=== PATIENT | male | born 1935 ===

== ENCOUNTER 2017-08-27 11:43 | Emergency (ER) | payer MEDICARE ==
[~2017-08-27] VITALS: Ht 185.4 cm; Wt 95.2 kg
[~2017-08-27 11:43] MED LIST: ALLO300 PO; AMIT25 PO; ASPI325; ASPI81CH PO; ATOR20 PO; ATOR40TA; Cialis20 MG; ENAL20 PO; FLONASE ALLERG9.9 ML NS; FURO40; FURO40 PO; GLYB5; JANUMET XR 50-1 EAC1; LISI5 PO; METF500 PO; METO25; ONGLYZA5 MG PO; PIOG30 PO; POTA10T; POTCHL10ER PO; TAMS.4ER PO
[2017-08-27 13:39] LABS: Source, Urine Catheter
[2017-08-27 13:43] LABS: Appearance, Urine Cloudy (Clear); Bilirubin, Urine Neg (Neg); Blood, Urine 5+ (Neg); Color, Urine Yellow (P-Yellow); Glucose Qualitative, Urine 2+ (Neg); Ketones, Urine Neg (Neg); Leukocyte Esterase, Urine 3+ (Neg); Nitrite, Urine Pos (Neg); Protein, Urine 3+ (Neg); Urobilinogen, Urine NORM (Normal)
[2017-08-27 13:49] LABS: Red Blood Cells, Urine TNTC /hpf (0-2); White Blood Cells, Urine 25-50 /hpf (0-5)
[2017-08-27 13:50] LABS: Bacteria Many /hpf; Squamous Epithelial Cells Not Seen /hpf (Few)
[2017-08-27] MEDS ORDERED: Cipro500 MG PO (14:06)
== END 2017-08-27 14:22 | disposition home or self-care (01) ==
LOC: ER 11:43
PROVIDERS: Emergency Medicine
DX: T83.511A Infection and inflammatory reaction due to indwelling urethral catheter, initial encounter (principal); E11.9 Type 2 diabetes mellitus without complications; Z79.899 Other long term (current) drug therapy; Z79.82 Long term (current) use of aspirin; Z79.84 Long term (current) use of oral hypoglycemic drugs
CPT/HCPCS: 51702; 81001; 87077; 87086; 87186; 99283

== ENCOUNTER 2017-08-28 11:56 | Emergency (ER) | payer MEDICARE ==
[~2017-08-28] VITALS: Ht 185.4 cm; Wt 95.2 kg
[~2017-08-28 11:56] MED LIST changes: +Cipro500 MG PO
[2017-08-28 13:19] LABS: BASOPHILS ABSOLUTE AUTO 0.03 K/mm3 (0.00-0.23); BASOPHILS PERCENT AUTO 1 % (0-2); EOSINOPHILS ABSOLUTE AUTO 0.04 K/mm3 (0.00-0.68); EOSINOPHILS PERCENT AUTO 1 % (0-6); Hematocrit 30.5 % (37.0-53.0); Hemoglobin 9.6 g/dL (13.5-17.5); IMMATURE GRAN ABSOLUTE AUTO 0.05 K/mm3 (0.00-0.10); IMMATURE GRAN PERCENT AUTO 1 % (0-1); LYMPHOCYTES ABSOLUTE AUTO 0.93 K/mm3 (0.84-5.20); LYMPHOCYTES PERCENT AUTO 16 % (21-46); MONOCYTES PERCENT AUTO 5 % (4-13); Mean Corpuscular HGB 29.7 pg (26.0-34.0); Mean Corpuscular HGB Conc 31.5 g/dL (31.5-36.5); Mean Corpuscular Volume 94 fL (80-100); Mean Platelet Volume 9.2 fL (9.1-12.4); NEUTROPHILS ABSOLUTE AUTO 4.41 K/mm3 (1.96-9.15); NEUTROPHILS PERCENT AUTO 77 % (41-73); Platelet Count 281 K/mm3 (150-400); RDW Coefficient Variation 15.2 % (11.7-14.2); RDW Standard Deviation 51.8 fL (35.1-46.3); Red Blood Cell Count 3.23 M/mm3 (4.30-5.90); White Blood Cell Count 5.76 K/mm3 (4.00-11.30)
[2017-08-28 13:24] LABS: Alanine Aminotransfer (ALT/SGP 19 U/L (12-78); Albumin, Blood 2.9 g/dL (3.4-5.0); Albumin/Globulin Ratio 0.8 (0.8-1.8); Alk Phos 106 U/L (50-136); Anion Gap 8 mmol/L (6-16); Aspartate Aminotrans (AST/SGOT 15 U/L (12-37); Bilirubin, Total 0.5 mg/dL (0.1-1.0); Blood Urea Nitrogen 11 mg/dL (8-24); Bun/Creatinine Ratio 11.3 (12.0-20.0); CO2, Blood 24 mmol/L (21-32); Calcium, Blood 8.9 mg/dL (8.5-10.1); Chloride, Blood 107 mmol/L (98-108); Creatinine, Blood 0.97 mg/dL (0.60-1.20); Globulin, Blood 3.7 g/dL (2.2-4.0); Glomerular Filtration Rate >60 (60-); Glucose, Blood 230 mg/dL (70-99); Potassium, Blood 4.9 mmol/L (3.5-5.5); Sodium, Blood 139 mmol/L (136-145); Total Protein, Blood 6.6 g/dL (6.4-8.2)
[2017-08-28 15:34] LABS: International Normalized Ratio 3.89; Prothrombin Time Results 42.2 Sec (9.7-11.5)
== END 2017-08-28 17:55 | disposition home or self-care (01) ==
LOC: ER 11:56
PROVIDERS: Emergency Medicine
DX: N39.0 Urinary tract infection, site not specified (principal); B96.5 Pseudomonas (aeruginosa) (mallei) (pseudomallei) as the cause of diseases classified elsewhere; R79.1 Abnormal coagulation profile; E11.9 Type 2 diabetes mellitus without complications; Z79.899 Other long term (current) drug therapy; Z79.84 Long term (current) use of oral hypoglycemic drugs; Z79.82 Long term (current) use of aspirin
CPT/HCPCS: 36415; 51700; 51798; 80053; 83605; 85025; 85610; 85730; 87040; 96365; 99283; J0744; J7030

== ENCOUNTER 2017-09-08 14:54 | Observation (INO) | payer MEDICARE ==
[~2017-09-08] VITALS: Ht 185.4 cm; Wt 89.5 kg
[2017-09-08] MEDS ORDERED: TORSE20 PO (15:29)
[2017-09-08] MEDS ORDERED: POTCHL10ER PO (15:29)
[2017-09-08] MEDS ORDERED: WARF2.5 PO (15:30)
[2017-09-08] MEDS ORDERED: CYAN100T2 (15:31)
[2017-09-08] MEDS ORDERED: MULTI VITAMIN1 EACH PO (15:32)
[2017-09-08] MEDS ORDERED: NIAC500 PO (15:32)
[2017-09-08] MEDS ORDERED: ALLEGRA ALLERGY60 MG PO (15:32)
[2017-09-08 15:49] LABS: BASOPHILS ABSOLUTE AUTO 0.04 K/mm3 (0.00-0.23); BASOPHILS PERCENT AUTO 1 % (0-2); EOSINOPHILS ABSOLUTE AUTO 0.09 K/mm3 (0.00-0.68); EOSINOPHILS PERCENT AUTO 2 % (0-6); Hematocrit 31.9 % (37.0-53.0); IMMATURE GRAN ABSOLUTE AUTO 0.02 K/mm3 (0.00-0.10); IMMATURE GRAN PERCENT AUTO 1 % (0-1); LYMPHOCYTES ABSOLUTE AUTO 0.97 K/mm3 (0.84-5.20); LYMPHOCYTES PERCENT AUTO 23 % (21-46); MONOCYTES PERCENT AUTO 10 % (4-13); Mean Corpuscular HGB 29.6 pg (26.0-34.0); Mean Corpuscular HGB Conc 31.3 g/dL (31.5-36.5); Mean Corpuscular Volume 94 fL (80-100); Mean Platelet Volume 9.4 fL (9.1-12.4); NEUTROPHILS ABSOLUTE AUTO 2.65 K/mm3 (1.96-9.15); NEUTROPHILS PERCENT AUTO 63 % (41-73); Platelet Count 209 K/mm3 (150-400); RDW Coefficient Variation 15.3 % (11.7-14.2); RDW Standard Deviation 53.2 fL (35.1-46.3); Red Blood Cell Count 3.38 M/mm3 (4.30-5.90); White Blood Cell Count 4.17 K/mm3 (4.00-11.30)
[2017-09-08 15:57] LABS: Albumin, Blood 3.2 g/dL (3.4-5.0); Albumin/Globulin Ratio 0.9 (0.8-1.8); Bilirubin, Total 0.5 mg/dL (0.1-1.0); Bun/Creatinine Ratio 18.1 (12.0-20.0); Calcium, Blood 9.1 mg/dL (8.5-10.1); Creatinine, Blood 1.38 mg/dL (0.60-1.20); Globulin, Blood 3.5 g/dL (2.2-4.0); Potassium, Blood 4.3 mmol/L (3.5-5.5); Total Protein, Blood 6.7 g/dL (6.4-8.2)
[2017-09-08 17:42] LABS: International Normalized Ratio 1.88; Prothrombin Time Results 19.9 Sec (9.7-11.5)
[2017-09-09 03:53] LABS: Hematocrit 28.7 % (37.0-53.0); Mean Corpuscular HGB 29.6 pg (26.0-34.0); Mean Corpuscular HGB Conc 31.4 g/dL (31.5-36.5); Mean Corpuscular Volume 94 fL (80-100); Mean Platelet Volume 8.6 fL (9.1-12.4); Platelet Count 176 K/mm3 (150-400); RDW Coefficient Variation 15.2 % (11.7-14.2); RDW Standard Deviation 52.5 fL (35.1-46.3); Red Blood Cell Count 3.04 M/mm3 (4.30-5.90); White Blood Cell Count 4.25 K/mm3 (4.00-11.30)
[2017-09-09 04:09] LABS: International Normalized Ratio 2.01; Prothrombin Time Results 21.4 Sec (9.7-11.5)
[2017-09-09 04:15] LABS: Albumin, Blood 2.8 g/dL (3.4-5.0); Albumin/Globulin Ratio 0.9 (0.8-1.8); Bilirubin, Total 0.6 mg/dL (0.1-1.0); Bun/Creatinine Ratio 16.9 (12.0-20.0); Calcium, Blood 8.8 mg/dL (8.5-10.1); Creatinine, Blood 1.24 mg/dL (0.60-1.20); Potassium, Blood 4.3 mmol/L (3.5-5.5); Total Protein, Blood 5.8 g/dL (6.4-8.2)
[2017-09-10 04:14] LABS: BASOPHILS ABSOLUTE AUTO 0.03 K/mm3 (0.00-0.23); BASOPHILS PERCENT AUTO 1 % (0-2); EOSINOPHILS ABSOLUTE AUTO 0.13 K/mm3 (0.00-0.68); EOSINOPHILS PERCENT AUTO 4 % (0-6); Hematocrit 29.1 % (37.0-53.0); Hemoglobin 9.3 g/dL (13.5-17.5); IMMATURE GRAN ABSOLUTE AUTO 0.02 K/mm3 (0.00-0.10); IMMATURE GRAN PERCENT AUTO 1 % (0-1); LYMPHOCYTES ABSOLUTE AUTO 0.53 K/mm3 (0.84-5.20); LYMPHOCYTES PERCENT AUTO 15 % (21-46); MONOCYTES ABSOLUTE AUTO 0.26 K/mm3 (0.16-1.47); MONOCYTES PERCENT AUTO 7 % (4-13); Mean Corpuscular Volume 94 fL (80-100); Mean Platelet Volume 9.6 fL (9.1-12.4); NEUTROPHILS ABSOLUTE AUTO 2.58 K/mm3 (1.96-9.15); NEUTROPHILS PERCENT AUTO 73 % (41-73); Platelet Count 188 K/mm3 (150-400); RDW Coefficient Variation 15.1 % (11.7-14.2); RDW Standard Deviation 52.1 fL (35.1-46.3); White Blood Cell Count 3.55 K/mm3 (4.00-11.30)
[2017-09-10 04:24] LABS: International Normalized Ratio 2.21; Prothrombin Time Results 23.6 Sec (9.7-11.5)
[2017-09-10 04:33] LABS: Anion Gap 8 mmol/L (6-16); Blood Urea Nitrogen 14 mg/dL (8-24); CO2, Blood 23 mmol/L (21-32); Calcium, Blood 8.5 mg/dL (8.5-10.1); Chloride, Blood 110 mmol/L (98-108); Creatinine, Blood 0.93 mg/dL (0.60-1.20); Glomerular Filtration Rate >60 (60-); Glucose, Blood 151 mg/dL (70-99); Potassium, Blood 4.3 mmol/L (3.5-5.5); Sodium, Blood 141 mmol/L (136-145)
[2017-09-10] MEDS ORDERED: CLOP75 PO (09:50)
== END 2017-09-10 12:20 | disposition home or self-care (01) ==
LOC: ER 14:54 → MEDS 14:55 → ICUE 14:55 → MEDS 18:18 → ER 18:18 → ICUE 21:20 → MEDS 21:39 → ICUE 09-09 11:01
PROVIDERS: Family Medicine; Hospitalist; Internal Medicine Interventional Cardiology; Physician Assistant
PROC: 047M3Z1 Dilation of Right Popliteal Artery using Drug-Coated Balloon, Percutaneous Approach (ICD-10-PCS; principal; 2017-09-08)
PROC: 047T341 Dilation of Right Peroneal Artery with Drug-eluting Intraluminal Device, using Drug-Coated Balloon, Percutaneous Approach (ICD-10-PCS; principal; 2017-09-08)
DX: I70.211 Atherosclerosis of native arteries of extremities with intermittent claudication, right leg (principal); I70.92 Chronic total occlusion of artery of the extremities; I87.1 Compression of vein; I48.0 Paroxysmal atrial fibrillation; E11.51 Type 2 diabetes mellitus with diabetic peripheral angiopathy without gangrene; E11.22 Type 2 diabetes mellitus with diabetic chronic kidney disease; I12.9 Hypertensive chronic kidney disease with stage 1 through stage 4 chronic kidney disease, or unspecified chronic kidney disease; N18.3 Chronic kidney disease, stage 3 (moderate); E78.5 Hyperlipidemia, unspecified; N40.0 Benign prostatic hyperplasia without lower urinary tract symptoms; D63.8 Anemia in other chronic diseases classified elsewhere; I25.10 Atherosclerotic heart disease of native coronary artery without angina pectoris; I25.2 Old myocardial infarction; M1A.30X0 Chronic gout due to renal impairment, unspecified site, without tophus (tophi); J30.9 Allergic rhinitis, unspecified; Z95.1 Presence of aortocoronary bypass graft; Z87.440 Personal history of urinary (tract) infections; Z79.899 Other long term (current) drug therapy; Z79.82 Long term (current) use of aspirin; Z79.84 Long term (current) use of oral hypoglycemic drugs; Z79.01 Long term (current) use of anticoagulants; Z98.49 Cataract extraction status, unspecified eye
CPT/HCPCS: 36415; 37224; 37230; 71046; 73630; 75625; 75710; 75774; 76937; 80048; 80053; 82947; 83036; 85014; 85018; 85025; 85027; 85347; 85610; 85730; 93308; 93321; 93926; 96361; 96365; 96366; 99152; 99153; 99285; C1725; C1769; C1874; C1887; C1894; C2623; G0378; J1644; J2250; J3010; J7030; J7040; Q9967

== ENCOUNTER → 2018-01-04 | Outpatient (CLI) | payer MEDICARE ==
[~2018-01-04] MED LIST changes: +ALLEGRA ALLERGY60 MG PO; +CLOP75 PO; +CYAN100T2; +MULTI VITAMIN1 EACH PO; +NIAC500 PO; +TORSE20 PO; +WARF2.5 PO
[2018-01-04 14:54] LABS: BASOPHILS ABSOLUTE AUTO 0.04 K/mm3 (0.00-0.23); BASOPHILS PERCENT AUTO 1 % (0-2); EOSINOPHILS ABSOLUTE AUTO 0.09 K/mm3 (0.00-0.68); EOSINOPHILS PERCENT AUTO 2 % (0-6); Hemoglobin 9.8 g/dL (13.5-17.5); IMMATURE GRAN ABSOLUTE AUTO 0.02 K/mm3 (0.00-0.10); IMMATURE GRAN PERCENT AUTO 0 % (0-1); LYMPHOCYTES ABSOLUTE AUTO 0.86 K/mm3 (0.84-5.20); LYMPHOCYTES PERCENT AUTO 18 % (21-46); MONOCYTES ABSOLUTE AUTO 0.36 K/mm3 (0.16-1.47); MONOCYTES PERCENT AUTO 8 % (4-13); Mean Corpuscular HGB 26.3 pg (26.0-34.0); Mean Corpuscular HGB Conc 31.6 g/dL (31.5-36.5); Mean Corpuscular Volume 83 fL (80-100); Mean Platelet Volume 9.8 fL (9.1-12.4); NEUTROPHILS ABSOLUTE AUTO 3.45 K/mm3 (1.96-9.15); NEUTROPHILS PERCENT AUTO 72 % (41-73); Platelet Count 219 K/mm3 (150-400); RDW Coefficient Variation 16.9 % (11.7-14.2); RDW Standard Deviation 51.3 fL (35.1-46.3); Red Blood Cell Count 3.73 M/mm3 (4.30-5.90); White Blood Cell Count 4.82 K/mm3 (4.00-11.30)
[2018-01-04 15:11] LABS: Albumin, Blood 3.3 g/dL (3.4-5.0); Albumin/Globulin Ratio 0.9 (0.8-1.8); Bilirubin, Total 0.5 mg/dL (0.1-1.0); Bun/Creatinine Ratio 22.2 (12.0-20.0); Creatinine, Blood 1.53 mg/dL (0.60-1.20); Globulin, Blood 3.6 g/dL (2.2-4.0); Potassium, Blood 4.9 mmol/L (3.5-5.5); Total Protein, Blood 6.9 g/dL (6.4-8.2); Troponin I 0.017 ng/mL (0.000-0.040)
== END | disposition home or self-care (01) ==
LOC: LAB EV 14:49 → LAB SHORT 14:49
PROVIDERS: Physician Assistant
DX: R06.02 Shortness of breath (principal)
CPT/HCPCS: 80053; 83880; 84484; 85025

== ENCOUNTER → 2018-01-06 | Outpatient (CLI) | payer MEDICARE ==
[2018-01-06 15:42] LABS: BASOPHILS ABSOLUTE AUTO 0.03 K/mm3 (0.00-0.23); BASOPHILS PERCENT AUTO 1 % (0-2); EOSINOPHILS PERCENT AUTO 2 % (0-6); Hematocrit 32.2 % (37.0-53.0); Hemoglobin 10.2 g/dL (13.5-17.5); IMMATURE GRAN ABSOLUTE AUTO 0.02 K/mm3 (0.00-0.10); IMMATURE GRAN PERCENT AUTO 1 % (0-1); LYMPHOCYTES ABSOLUTE AUTO 0.83 K/mm3 (0.84-5.20); LYMPHOCYTES PERCENT AUTO 20 % (21-46); MONOCYTES ABSOLUTE AUTO 0.32 K/mm3 (0.16-1.47); MONOCYTES PERCENT AUTO 8 % (4-13); Mean Corpuscular HGB 26.4 pg (26.0-34.0); Mean Corpuscular HGB Conc 31.7 g/dL (31.5-36.5); Mean Corpuscular Volume 83 fL (80-100); Mean Platelet Volume 9.5 fL (9.1-12.4); NEUTROPHILS ABSOLUTE AUTO 2.82 K/mm3 (1.96-9.15); NEUTROPHILS PERCENT AUTO 69 % (41-73); Platelet Count 225 K/mm3 (150-400); RDW Coefficient Variation 17.2 % (11.7-14.2); RDW Standard Deviation 51.6 fL (35.1-46.3); Red Blood Cell Count 3.87 M/mm3 (4.30-5.90); White Blood Cell Count 4.12 K/mm3 (4.00-11.30)
[2018-01-06 15:51] LABS: Calcium, Blood 9.3 mg/dL (8.5-10.1); Creatinine, Blood 1.5 mg/dL (0.60-1.20); Potassium, Blood 4.6 mmol/L (3.5-5.5)
== END | disposition home or self-care (01) ==
LOC: LAB SHORT 15:37 → LAB EV 15:37
PROVIDERS: Family Medicine
DX: I50.9 Heart failure, unspecified (principal)
CPT/HCPCS: 80048; 85025

== ENCOUNTER 2018-05-10 13:27 | Day surgery (SDC) | payer OTHER, MEDICARE ==
[~2018-05-10] VITALS: Ht 182.9 cm; Wt 89.2 kg
== END 2018-05-10 16:59 | disposition home or self-care (01) ==
LOC: ORSCSDS 13:27
PROVIDERS: Ophthalmology
PROC: 08SRXZZ Reposition Left Lower Eyelid, External Approach (ICD-10-PCS; principal; 2018-05-10 15:15)
PROC: 08N1XZZ Release Left Eye, External Approach (ICD-10-PCS; principal; 2018-05-10 15:15)
DX: H02.135 Senile ectropion of left lower eyelid (principal); H16.213 Exposure keratoconjunctivitis, bilateral; H40.9 Unspecified glaucoma; I25.10 Atherosclerotic heart disease of native coronary artery without angina pectoris; E11.9 Type 2 diabetes mellitus without complications; Z79.82 Long term (current) use of aspirin; Z79.899 Other long term (current) drug therapy; Z79.4 Long term (current) use of insulin; I10 Essential (primary) hypertension; E78.5 Hyperlipidemia, unspecified; Z79.01 Long term (current) use of anticoagulants
CPT/HCPCS: 82947; J2250; J3010; J3301; J7040; J7120

== ENCOUNTER 2020-03-05 11:29 | Day surgery (SDC) | payer OTHER ==
[~2020-03-05] VITALS: Ht 182.9 cm; Wt 96.9 kg
[2020-03-05] MEDS ORDERED: ELIQUIS2.5 MG PO (12:17)
[2020-03-05] MEDS ORDERED: CARV6.25 PO (12:18)
[2020-03-05] MEDS ORDERED: NOVOLOG FL100 UNIT/2 SC (12:19)
[2020-03-05] MEDS ORDERED: BASAGLAR K100 UNIT/1 SC (12:19)
--- NOTE | 2020-03-05 13:18 | NUR ---
03/05/20 1318 Mason Fowler BUPIVACAINE 0.5 % W/ EPI 1:200,00 MIXED W/ XYLOCAINE 2% 1:100,000 1:1 FOR PRE INJECTION PER DR. GARCIA.
== END 2020-03-05 14:44 | disposition home or self-care (01) ==
LOC: ORSCSDS 11:29
PROVIDERS: Ophthalmology
PROC: 08SRXZZ Reposition Left Lower Eyelid, External Approach (ICD-10-PCS; principal; 2020-03-05 13:00)
DX: H02.135 Senile ectropion of left lower eyelid (principal); Z79.4 Long term (current) use of insulin; Z79.82 Long term (current) use of aspirin; E11.9 Type 2 diabetes mellitus without complications; I10 Essential (primary) hypertension; E78.5 Hyperlipidemia, unspecified; I48.91 Unspecified atrial fibrillation; I25.10 Atherosclerotic heart disease of native coronary artery without angina pectoris; Z79.899 Other long term (current) drug therapy
CPT/HCPCS: 82947; J0171; J2405; J2704; J3010; J3301; J7040; J7120

== ENCOUNTER 2020-05-06 13:25 | Emergency (ER) | payer OTHER, MEDICARE ==
[~2020-05-06] VITALS: Ht 182.9 cm; Wt 97.5 kg
[~2020-05-06 13:25] MED LIST changes: +BASAGLAR K100 UNIT/1 SC; +CARV6.25 PO; +ELIQUIS2.5 MG PO; +NOVOLOG FL100 UNIT/2 SC
[2020-05-06 15:33] LABS: BASOPHILS ABSOLUTE AUTO 0.05 K/mm3 (0.00-0.23); BASOPHILS PERCENT AUTO 1 % (0-2); EOSINOPHILS ABSOLUTE AUTO 0.16 K/mm3 (0.00-0.68); EOSINOPHILS PERCENT AUTO 2 % (0-6); Hemoglobin 14.3 g/dL (13.5-17.5); IMMATURE GRAN ABSOLUTE AUTO 0.04 K/mm3 (0.00-0.10); IMMATURE GRAN PERCENT AUTO 1 % (0-1); LYMPHOCYTES ABSOLUTE AUTO 1.36 K/mm3 (0.84-5.20); LYMPHOCYTES PERCENT AUTO 19 % (21-46); MONOCYTES ABSOLUTE AUTO 0.55 K/mm3 (0.16-1.47); MONOCYTES PERCENT AUTO 8 % (4-13); Mean Corpuscular HGB 31.4 pg (26.0-34.0); Mean Corpuscular HGB Conc 33.3 g/dL (31.5-36.5); Mean Corpuscular Volume 94 fL (80-100); Mean Platelet Volume 9.8 fL (9.1-12.4); NEUTROPHILS ABSOLUTE AUTO 5.16 K/mm3 (1.96-9.15); NEUTROPHILS PERCENT AUTO 71 % (41-73); Platelet Count 195 K/mm3 (150-400); RDW Coefficient Variation 13.6 % (11.7-14.2); RDW Standard Deviation 47.1 fL (35.1-46.3); Red Blood Cell Count 4.56 M/mm3 (4.30-5.90); White Blood Cell Count 7.32 K/mm3 (4.00-11.30)
[2020-05-06 16:04] LABS: Alanine Aminotransfer (ALT/SGP 33 U/L (12-78); Albumin, Blood 3.9 g/dL (3.4-5.0); Alk Phos 127 U/L (50-136); Anion Gap 6 mmol/L (6-16); Aspartate Aminotrans (AST/SGOT 25 U/L (12-37); Bilirubin, Total 0.8 mg/dL (0.1-1.0); Blood Urea Nitrogen 36 mg/dL (8-24); Bun/Creatinine Ratio 22.8 (12.0-20.0); CO2, Blood 28 mmol/L (21-32); Chloride, Blood 107 mmol/L (98-108); Creatinine, Blood 1.58 mg/dL (0.60-1.20); Globulin, Blood 3.9 g/dL (2.2-4.0); Glomerular Filtration Rate 44 (60-); Glucose, Blood 168 mg/dL (70-99); Potassium, Blood 4.9 mmol/L (3.5-5.5); Sodium, Blood 141 mmol/L (136-145); Total Protein, Blood 7.8 g/dL (6.4-8.2); Troponin I <0.015 ng/mL (0.000-0.040)
== END 2020-05-06 18:55 | disposition home or self-care (01) ==
LOC: ER 13:25
PROVIDERS: Physician Assistant
DX: S01.01XD Laceration without foreign body of scalp, subsequent encounter (principal); R42 Dizziness and giddiness; R51 Headache; I25.810 Atherosclerosis of coronary artery bypass graft(s) without angina pectoris; I48.0 Paroxysmal atrial fibrillation; I25.2 Old myocardial infarction; I12.9 Hypertensive chronic kidney disease with stage 1 through stage 4 chronic kidney disease, or unspecified chronic kidney disease; E11.22 Type 2 diabetes mellitus with diabetic chronic kidney disease; N18.3 Chronic kidney disease, stage 3 (moderate); Z95.1 Presence of aortocoronary bypass graft; Z79.01 Long term (current) use of anticoagulants; Z79.82 Long term (current) use of aspirin; Z79.84 Long term (current) use of oral hypoglycemic drugs; Z79.899 Other long term (current) drug therapy; W18.30XD Fall on same level, unspecified, subsequent encounter
CPT/HCPCS: 70450; 80053; 84484; 85025; 93005; 93010; 99283-25

== ENCOUNTER 2020-05-14 02:19 | Inpatient (IN) | payer OTHER, MEDICARE ==
[~2020-05-14] VITALS: Ht 182.9 cm; Wt 94.6 kg
[~2020-05-14 02:19] MED LIST changes: -CYAN100T2; +CYAN500 PO
[2020-05-14 02:42] LABS: BASOPHILS ABSOLUTE AUTO 0.05 K/mm3 (0.00-0.23); BASOPHILS PERCENT AUTO 1 % (0-2); EOSINOPHILS ABSOLUTE AUTO 0.15 K/mm3 (0.00-0.68); EOSINOPHILS PERCENT AUTO 2 % (0-6); Hematocrit 39.3 % (37.0-53.0); Hemoglobin 13.1 g/dL (13.5-17.5); IMMATURE GRAN ABSOLUTE AUTO 0.04 K/mm3 (0.00-0.10); IMMATURE GRAN PERCENT AUTO 1 % (0-1); LYMPHOCYTES ABSOLUTE AUTO 1.24 K/mm3 (0.84-5.20); LYMPHOCYTES PERCENT AUTO 15 % (21-46); MONOCYTES ABSOLUTE AUTO 0.48 K/mm3 (0.16-1.47); MONOCYTES PERCENT AUTO 6 % (4-13); Mean Corpuscular HGB 31.3 pg (26.0-34.0); Mean Corpuscular HGB Conc 33.3 g/dL (31.5-36.5); Mean Corpuscular Volume 94 fL (80-100); Mean Platelet Volume 9.9 fL (9.1-12.4); NEUTROPHILS PERCENT AUTO 76 % (41-73); Platelet Count 174 K/mm3 (150-400); RDW Coefficient Variation 13.4 % (11.7-14.2); RDW Standard Deviation 45.8 fL (35.1-46.3); Red Blood Cell Count 4.19 M/mm3 (4.30-5.90); White Blood Cell Count 8.26 K/mm3 (4.00-11.30)
[2020-05-14 02:56] LABS: Bun/Creatinine Ratio 25.3 (12.0-20.0); Calcium, Blood 9.6 mg/dL (8.5-10.1); Creatinine, Blood 1.58 mg/dL (0.60-1.20); Potassium, Blood 4.3 mmol/L (3.5-5.5)
[2020-05-14 03:34] LABS: Source, Urine Clean Catch
[2020-05-14 03:36] LABS: Appearance, Urine Hazy (Clear); Bilirubin, Urine Neg (Neg); Blood, Urine 5+ (Neg); Color, Urine Yellow (P-Yellow); Glucose Qualitative, Urine Neg (Neg); Ketones, Urine 1+ (Neg); Leukocyte Esterase, Urine Neg (Neg); Nitrite, Urine Neg (Neg); Protein, Urine 2+ (Neg); Specific Gravity, Urine 1.015 (1.003-1.022); Urobilinogen, Urine NORM (Normal)
[2020-05-14 03:46] LABS: Bacteria Rare /hpf; Red Blood Cells, Urine 50-100 /hpf (0-2); Squamous Epithelial Cells Rare /hpf (Few); White Blood Cells, Urine Rare /hpf (0-5)
[2020-05-14 06:50] LABS: Albumin, Blood 3.6 g/dL (3.4-5.0); Albumin/Globulin Ratio 1.1 (0.8-1.8); Bilirubin, Direct 0.2 mg/dL (0.0-0.3); Bilirubin, Indirect 0.6 mg/dL (0.1-0.7); Bilirubin, Total 0.8 mg/dL (0.1-1.0); Globulin, Blood 3.3 g/dL (2.2-4.0); Total Protein, Blood 6.9 g/dL (6.4-8.2)
--- NOTE | 2020-05-14 07:33 | NUR ---
SHIFT SUMMARY PT ARRIVED TO ROOM 333 AT ABOUT 0610. PT A/O X4. ORIENTED TO ROOM, CALL LIGHT IN REACH. PT INSTRUCTED TO CALL STAFF BEFORE GETTING OUT OF BED DUE TO SYNCOPAL EPISODES. IV FLUIDS STARTED PER ORDERS. TELE IN PLACE SHOWING A -FIB IN 60'S. PT RESTING IN BED AT THIS TIME.
--- NOTE | 2020-05-14 08:02 | NUR ---
SPOKE WITH TELE, PT HAD A 3 SECOND AND A 3.2 SECOND PAUSE HE ALSO HAD AN EPISODE OF V CALEB IN THE 50'S. CURRENTLY RUNNING 40'S AFIB. PT WAS NON SYMPTOMATIC. CALLED AND LEFT MESSAGE WITH DR. HAND.
[2020-05-14 09:04] LABS: Prothrombin Time Results 10.7 Sec (9.7-11.5)
[2020-05-14 09:14] LABS: Troponin I 0.055 ng/mL (0.000-0.040)
[2020-05-14 09:16] LABS: Thyroid Stimulating Hormone 2.23 uIU/mL (0.360-4.800)
--- NOTE | 2020-05-14 11:16 | NUR ---
PT TRANSFERED TO PCU DUE TO PAUSES AND LOW PULSE. REPORT GIVEN TO TAWNYA GOODMAN
--- NOTE | 2020-05-14 16:40 | NUR ---
SHIFT SUMMARY PT A&Ox3; FORGETFUL AT TIMES; CALM AND COOPERATIVE WITH CARE. PT RESTING IN BED. 1 PERSON ASSIST WITH GAITBELT. PT DENIES DIZZINESS/LIGHTHEADEDNESS; CHEST PAIN/PRESSURE, PAIN, SOB AND NAUSEA. BLOOD NOTED AT [facility]; NOTIFIED DR HAND; NO NEW ORDERS. PER TELE AFIB 40-60'S; PT HAS BEEN ASSYMPTOMATIC SINCE TRANSFER TO PCU. OTHER VSS. NO OTHER ACUTE CHANGES NOTED DURING SHIFT.
[2020-05-15 04:01] LABS: BASOPHILS ABSOLUTE AUTO 0.04 K/mm3 (0.00-0.23); BASOPHILS PERCENT AUTO 1 % (0-2); EOSINOPHILS ABSOLUTE AUTO 0.18 K/mm3 (0.00-0.68); EOSINOPHILS PERCENT AUTO 4 % (0-6); Hematocrit 39.2 % (37.0-53.0); Hemoglobin 13.2 g/dL (13.5-17.5); IMMATURE GRAN ABSOLUTE AUTO 0.01 K/mm3 (0.00-0.10); IMMATURE GRAN PERCENT AUTO 0 % (0-1); LYMPHOCYTES PERCENT AUTO 28 % (21-46); MONOCYTES ABSOLUTE AUTO 0.51 K/mm3 (0.16-1.47); MONOCYTES PERCENT AUTO 10 % (4-13); Mean Corpuscular HGB 31.2 pg (26.0-34.0); Mean Corpuscular HGB Conc 33.7 g/dL (31.5-36.5); Mean Corpuscular Volume 93 fL (80-100); Mean Platelet Volume 9.6 fL (9.1-12.4); NEUTROPHILS ABSOLUTE AUTO 2.89 K/mm3 (1.96-9.15); NEUTROPHILS PERCENT AUTO 58 % (41-73); Platelet Count 166 K/mm3 (150-400); RDW Coefficient Variation 13.6 % (11.7-14.2); RDW Standard Deviation 45.9 fL (35.1-46.3); Red Blood Cell Count 4.23 M/mm3 (4.30-5.90); White Blood Cell Count 5.03 K/mm3 (4.00-11.30)
[2020-05-15 04:23] LABS: Albumin, Blood 3.5 g/dL (3.4-5.0); Bun/Creatinine Ratio 25.7 (12.0-20.0); Calcium, Blood 9.5 mg/dL (8.5-10.1); Creatinine, Blood 1.52 mg/dL (0.60-1.20); Globulin, Blood 3.5 g/dL (2.2-4.0); Phosphorus, Blood 3.7 mg/dL (2.5-4.9); Potassium, Blood 3.9 mmol/L (3.5-5.5)
--- NOTE | 2020-05-15 06:17 | NUR ---
SHIFT SUMMARY PATIENT PLEASENT AND COOPERATIVE THROUGHOUT THE NIGHT. PATIENT APPEARED TO SLEEP WELL LAST NIGHT WITH NO COMPLAINTS OF PAIN. PATIENT'S HEART RATE REMAINED MOSTLY IN THE 40'S-50'S THROUGHOUT THE NIGHT. NO PAUSES OCCURED LAST NIGHT. PATIENT CONTINUES TO DENY ANY DIZZY OR SYNCAPLE EPISODES SINCE ARRIVAL TO [facility]. VITAL SIGNS CHARTED. PATIENT ABLE TO MOVE SELF ABOUT IN BED. WILL CONTINUE TO MONITOR PATIENT AND REPORT TO ONCOMING RN.
--- NOTE | 2020-05-15 16:39 | NUR ---
POST PACEMAKER PLACEMENT PT RETURNED TO PCU 5 ALERT AND ORIENTED. PRESSURE DRESSING C/D/I INTACT TO LEFT CHEST, ARM SLING PLACED TO LEFT ARM. PT DENIES ANY PAIN. TELEMETRY SHOW'S PACED WITH RATE'S 7O'S. VITALS ARE STABLE, PT IS ON ROOM AIR. INSTRUCTED PT ON PACEMAKER PRECAUTIONS. CALL LIGHT WITHIN REACH OF PT.
--- NOTE | 2020-05-15 17:50 | NUR ---
SHIFT SUMMARY PT IS ALERT AND ORIENTEDx4, POST PACEMAKER PLACEMENT TODAY. TELEMETRY SHOWS PT TO BE PACED, RATES IN 70'S. PT CURRENTLY DENIES ANY PAIN OR DISCOMFORT RELATED TO PROCEDURE. DRESSING TO LEFT CHEST IS C/D/I, ARM SLING REMAINS IN PLACE. VITALS ARE STABLE. PT HAS DECLINED ANY DIZZINESS SINCE PACEMAKER WAS PLACED. INSTRUCTED PT AND FAMILY ON PACEMAKER PRECAUTIONS. CALL LIGHT IN REACH OF PT.
--- NOTE | 2020-05-16 06:39 | NUR ---
SHIFT SUMMARY PATIENT PLEASENT AND COOPERATIVE THROUGHOUT THE NIGHT. PATIENT'S PACEMAKER SITE TO LEFT SHOULDER REMAINS SOFT TO THE TOUCH WITH NO SIGNS OF BLEEDING OR BRUISING AROUND THE PRESSURE DRESSING. SLING IN PLACE. PATIENT PROVIDED WITH POST PACEMAKER EDUCATION AND MOVEMENT RESTRICTIONS. PATIENT APPEARED TO SLEEP WELL THROUGHOUT THE SECOND HALF OF THE NIGHT. ABX GIVEN PER ORDERS. PATIENT'S HEART RATE REMAINED MOSTLY IN THE 60'S THROUGHOUT THE NIGHT. VITAL SIGNS CHARTED. WILL CONTINUE TO MONITOR PATIENT AND REPORT TO ONCOMING RN.
--- NOTE | 2020-05-16 07:52 | NUR ---
ASSUMED CARE AT 0700, REPORT FROM REX PETERSEN. RESTING SUPINE IN BED IN LOW FOWLERS A/A/OX4. LEFT ARM SLING IN PLACE, BANDAGE TO LEFT CHEST WALL PACEMAKER SITE CLEAN DRY AND INTACT. PLAN OF CARE REVIWED FOR DAY, DENIES NEEDS AT THIS TIME, WILL CONTINUE TO MONITOR.
[2020-05-16] MEDS ORDERED: ACET325 PO (12:16)
== END 2020-05-16 13:47 | disposition home or self-care (01) | DRG 244 ==
LOC: ER 02:19 → MEDS 02:20 → PCU 11:22
PROVIDERS: Internal Medicine; Student in an Organized Health Care Education/Training Program; ADMIT Internal Medicine
PROC: 0JH606Z Insertion of Pacemaker, Dual Chamber into Chest Subcutaneous Tissue and Fascia, Open Approach (ICD-10-PCS; principal; 2020-05-15)
PROC: 02HK3JZ Insertion of Pacemaker Lead into Right Ventricle, Percutaneous Approach (ICD-10-PCS; 2020-05-15)
PROC: 02H63JZ Insertion of Pacemaker Lead into Right Atrium, Percutaneous Approach (ICD-10-PCS; 2020-05-15)
DX: I49.5 Sick sinus syndrome (principal); I48.0 Paroxysmal atrial fibrillation; I25.10 Atherosclerotic heart disease of native coronary artery without angina pectoris; E11.22 Type 2 diabetes mellitus with diabetic chronic kidney disease; N18.3 Chronic kidney disease, stage 3 (moderate); I12.9 Hypertensive chronic kidney disease with stage 1 through stage 4 chronic kidney disease, or unspecified chronic kidney disease; I25.5 Ischemic cardiomyopathy; E11.51 Type 2 diabetes mellitus with diabetic peripheral angiopathy without gangrene; E86.0 Dehydration; M10.9 Gout, unspecified; R29.6 Repeated falls; Z91.81 History of falling; Z95.1 Presence of aortocoronary bypass graft; I25.2 Old myocardial infarction; Z79.01 Long term (current) use of anticoagulants; Z79.82 Long term (current) use of aspirin; Z79.4 Long term (current) use of insulin; Z86.718 Personal history of other venous thrombosis and embolism
CPT/HCPCS: 33208; 36415; 71045; 71046; 76937; 80048; 80053; 80076; 81001; 82947; 83880; 84100; 84443; 84484; 85025; 85610; 93005; 93010; 93306; 97161; 97165; 97530; 97535; 99152; 99153; 99285-25; A9270; A9270-GY; C1785; C1894; C1898; G0378; J0690; J1644; J2250; J3010; J7030; J7040; U0002

== ENCOUNTER 2020-09-06 20:41 | Inpatient (IN) | payer MEDICARE, OTHER ==
[~2020-09-06] VITALS: Ht 182.9 cm; Wt 92.9 kg
[~2020-09-06 20:41] MED LIST changes: +ACET325 PO
[2020-09-06] MEDS ORDERED: ATOR20 PO (21:36)
[2020-09-06] MEDS ORDERED: LISI5 PO (21:40)
[2020-09-06] MEDS ORDERED: METF500 PO (21:40)
[2020-09-06 22:05] LABS: BASOPHILS ABSOLUTE AUTO 0.04 K/mm3 (0.00-0.23); BASOPHILS PERCENT AUTO 0 % (0-2); EOSINOPHILS PERCENT AUTO 1 % (0-6); Hematocrit 38.8 % (37.0-53.0); Hemoglobin 12.5 g/dL (13.5-17.5); IMMATURE GRAN ABSOLUTE AUTO 0.05 K/mm3 (0.00-0.10); IMMATURE GRAN PERCENT AUTO 0 % (0-1); LYMPHOCYTES ABSOLUTE AUTO 0.76 K/mm3 (0.84-5.20); LYMPHOCYTES PERCENT AUTO 6 % (21-46); MONOCYTES ABSOLUTE AUTO 0.62 K/mm3 (0.16-1.47); MONOCYTES PERCENT AUTO 5 % (4-13); Mean Corpuscular HGB 30.6 pg (26.0-34.0); Mean Corpuscular HGB Conc 32.2 g/dL (31.5-36.5); Mean Corpuscular Volume 95 fL (80-100); Mean Platelet Volume 11.6 fL (9.1-12.4); NEUTROPHILS ABSOLUTE AUTO 11.53 K/mm3 (1.96-9.15); NEUTROPHILS PERCENT AUTO 88 % (41-73); Platelet Count 258 K/mm3 (150-400); RDW Standard Deviation 48.4 fL (35.1-46.3); Red Blood Cell Count 4.08 M/mm3 (4.30-5.90)
[2020-09-06 23:10] LABS: Albumin, Blood 3.4 g/dL (3.4-5.0); Albumin/Globulin Ratio 0.9 (0.8-1.8); Bilirubin, Total 0.8 mg/dL (0.1-1.0); Bun/Creatinine Ratio 20.5 (12.0-20.0); Creatinine, Blood 1.32 mg/dL (0.60-1.20); Globulin, Blood 3.6 g/dL (2.2-4.0); Potassium, Blood 4.9 mmol/L (3.5-5.5); Troponin I 0.041 ng/mL (0.000-0.040)
[2020-09-07 00:17] LABS: Magnesium, Blood 1.7 mg/dL (1.6-2.4); Phosphorus, Blood 1.5 mg/dL (2.5-4.9)
[2020-09-07 02:07] LABS: Influenza A, PCR Negative (NEGATIVE); Influenza B, PCR Negative (NEGATIVE); Resp Syncytial Virus, PCR Negative (NEGATIVE); SARS-Cov-2 (COVID-19) PCR, MMC Negative (NEGATIVE)
[2020-09-07 03:43] LABS: Bun/Creatinine Ratio 19.9 (12.0-20.0); Calcium, Blood 8.9 mg/dL (8.5-10.1); Creatinine, Blood 1.36 mg/dL (0.60-1.20); Potassium, Blood 4.8 mmol/L (3.5-5.5)
--- NOTE | 2020-09-07 04:47 | NUR ---
SHIFT SUMMARY PATIENT ADMITTED TO ICU TONIGHT, PAIN GREATLY RELIEVED COMPARED TO ADMIT, PT. STATES SWELLING IS WAY DOWN COMPARED TO YESTERDAY. VOIDING MINIMAL FOR HAVING LASIX DOSES. VSS. WILL CONTINUE TO MONITOR.
--- NOTE | 2020-09-07 10:15 | NUR ---
AM NOTE... ASSUMED CARE OF PT APROX 0700, PT IS A&Ox4 AND SBA IN THE ROOM W/FWW. PT'S VS STABLE AT THIS TIME, PT DENIES ANY CHEST PAIN/PRESSURE OR INCREASED SOB. PT IS ON RA WITH O2 SATS>90%. L/S CLEAR T/O. BT PRESENT AND HYPERACTIVE, ABD IS SOFT AND NONTENDER TO PALP. PT'S LEFT LEG IS SWOLLEN AND RED, SLIGHTLY WARM AND PAINFUL TO THE TOUCH. PULSES FAINT BUT PRESENT IN LLE. PT IS 100% PACED IN THE 60'S PER MONITOR. BP STABLE. WILL CONTINUE TO MONITOR.
--- NOTE | 2020-09-07 16:10 | NUR ---
PT UPDATE... THIS RN WAS IN THE PT'S ROOM STARTING HIS IV ANTIBIOTICS WHEN HIS TOLD THIS RN THAT SHE NOTICED HE WAS HAVING A HARD TIME GETTING BACK TO BED FROM THE TOILET, HE AGREED THAT HE FELT MORE SHORT OF BREATH THAN EARLIER TODAY. HIS LUNGS WERE REASSESSED AND FINE CRACKLES WERE HEARD IN THE BASES. EARLIER ASSESSMENTS WERE CLEAR T/O. PROVIDER WAS CALLED AND UPDATED ON HIS INCREASED SOB, NEW ORDERS OBTAINED FOR PO LASIX. WILL CONTINUE TO MONITOR.
--- NOTE | 2020-09-07 17:16 | NUR ---
SHIFT SUMMARY... NO ACUTE NEGATIVE CHANGES SINCE PRIOR NOTE. PT WAS GIVEN PO LASIX PER ORDERS. PT'S VS HAVE BEEN STABLE T/O SHIFT. PT HAS NOT C/O OF PAIN TO HIS LEFT LEG. PT'S HAS BEEN AT THE BEDSIDE SINCE 1400. PT'S TROPONINS HAVE TRENDED DOWN T/O THE SHIFT, PT DENIES ANY CHEST PAIN. PT HAS BEEN VOIDING USING A URINAL OR THE HAT IN THE TOILET. CALL LIGHT IN REACH WILL CONTINUE TO MONITOR UNTIL REPORT IS GIVEN TO ONCOMING RN.
[2020-09-08 03:58] LABS: BASOPHILS ABSOLUTE AUTO 0.03 K/mm3 (0.00-0.23); BASOPHILS PERCENT AUTO 1 % (0-2); EOSINOPHILS ABSOLUTE AUTO 0.12 K/mm3 (0.00-0.68); EOSINOPHILS PERCENT AUTO 2 % (0-6); Hematocrit 34.2 % (37.0-53.0); Hemoglobin 10.9 g/dL (13.5-17.5); IMMATURE GRAN ABSOLUTE AUTO 0.01 K/mm3 (0.00-0.10); IMMATURE GRAN PERCENT AUTO 0 % (0-1); LYMPHOCYTES PERCENT AUTO 18 % (21-46); MONOCYTES ABSOLUTE AUTO 0.49 K/mm3 (0.16-1.47); MONOCYTES PERCENT AUTO 8 % (4-13); Mean Corpuscular HGB 30.4 pg (26.0-34.0); Mean Corpuscular HGB Conc 31.9 g/dL (31.5-36.5); Mean Corpuscular Volume 96 fL (80-100); Mean Platelet Volume 10.1 fL (9.1-12.4); NEUTROPHILS ABSOLUTE AUTO 4.43 K/mm3 (1.96-9.15); NEUTROPHILS PERCENT AUTO 72 % (41-73); Platelet Count 156 K/mm3 (150-400); RDW Coefficient Variation 13.9 % (11.7-14.2); RDW Standard Deviation 48.7 fL (35.1-46.3); Red Blood Cell Count 3.58 M/mm3 (4.30-5.90); White Blood Cell Count 6.18 K/mm3 (4.00-11.30)
[2020-09-08 04:17] LABS: Albumin, Blood 2.9 g/dL (3.4-5.0); Albumin/Globulin Ratio 0.9 (0.8-1.8); Bilirubin, Total 1.1 mg/dL (0.1-1.0); Bun/Creatinine Ratio 23.7 (12.0-20.0); Calcium, Blood 8.8 mg/dL (8.5-10.1); Creatinine, Blood 1.35 mg/dL (0.60-1.20); Globulin, Blood 3.3 g/dL (2.2-4.0); Potassium, Blood 4.3 mmol/L (3.5-5.5); Total Protein, Blood 6.2 g/dL (6.4-8.2)
--- NOTE | 2020-09-08 04:42 | NUR ---
SHIFT SUMRY PATIENT SLEPT WELL TONIGHT. NO C/O PAIN. AMBULATING INDEPENDENTLY IN ROOM. LEFT LEG SLIGHTLY LESS SWOLLEN, PT. STATES IT HARDLY BOTHERS HIM AT THIS POINT. VSS. WILL CONTINUE TO MONITOR.
--- NOTE | 2020-09-08 10:05 | NUR ---
PT HAS BEEN UP IN CAHIR AND AROUND IN ROOM W/O PAIN OR DISTRESS ON BLLE. SOME SL OLD REDDNESS NOTED ON ANTERIOR SURFACE OF LEG. PT INDICATES THAT PAIN IS GONE BUT THAT SOME TENDERNESS TO TOUCH REMAINS WITH 3 TO 4+ SWELLING OF L CALF. " OVER ALL NO PAIN AND FEELING MUCH BETTER."
[2020-09-08] MEDS ORDERED: CEPH500 PO (12:45)
--- NOTE | 2020-09-08 14:55 | NUR ---
1320... PT DISCHARGE INSTRUCTIONS GIVEN, NEW MEDS CLARRIFIED, PT QUESTIONS ANSWERED. IV REMOVED AND INTACT. PT TO [facility] VIA W/C WITH SON. PT CONT TO DENIE LEG PAINS OTHER THAN PRIOR TENDERNESS DESCRIBED. NEW RX WAS CALLED TO [facility].
--- NOTE | 2020-09-08 17:43 | NUR ---
Mr. Mcqueen's son last week from cancer. I was present for this event. He appeared to benefit from gentle bereavement on awake counselor and theraputic listeing. He was tearful. He was being discharged, so conversation kept brief. Offered prayer and my contact information for future on awake counselor if he desires.
[2021-03-09] MEDS ORDERED: METOPROLOL SUCC25 MG PO (13:46)
[2021-03-09] MEDS ORDERED: FERSU300 PO (13:47)
[2021-03-09] MEDS ORDERED: LEVEMIR FL100 UNIT/2 SC (13:47)
[2021-03-09] MEDS ORDERED: ELIQUIS5 M2 PO (13:48)
== END 2020-09-08 13:23 | disposition home or self-care (01) | DRG 602 ==
LOC: ER 20:41 → ICUW 09-07 00:45 → ICUE 09-07 00:45 → ICUW 09-07 02:14 → ICUE 09-07 02:14 → ER 09-07 02:14 → ICUE 09-07 02:19 → ICUW 09-07 02:19 → ICUE 09-07 08:42
PROVIDERS: Emergency Medicine; Internal Medicine; ADMIT Internal Medicine
DX: L03.116 Cellulitis of left lower limb (principal); I50.43 Acute on chronic combined systolic (congestive) and diastolic (congestive) heart failure; I13.0 Hypertensive heart and chronic kidney disease with heart failure and stage 1 through stage 4 chronic kidney disease, or unspecified chronic kidney disease; R65.10 Systemic inflammatory response syndrome (SIRS) of non-infectious origin without acute organ dysfunction; I48.20 Chronic atrial fibrillation, unspecified; Z20.822 Contact with and (suspected) exposure to COVID-19; N40.0 Benign prostatic hyperplasia without lower urinary tract symptoms; I25.10 Atherosclerotic heart disease of native coronary artery without angina pectoris; N18.30 Chronic kidney disease, stage 3 unspecified; E11.22 Type 2 diabetes mellitus with diabetic chronic kidney disease; E83.39 Other disorders of phosphorus metabolism; E78.5 Hyperlipidemia, unspecified; Z95.1 Presence of aortocoronary bypass graft; I25.2 Old myocardial infarction; Z86.718 Personal history of other venous thrombosis and embolism; Z79.82 Long term (current) use of aspirin; Z79.4 Long term (current) use of insulin
CPT/HCPCS: 0241U; 36415; 71045; 73590; 80048; 80053; 82947; 83605; 83735; 83880; 84100; 84484; 85025; 85379; 85651; 86141; 93005; 93010; 93971; 96365; 96375; 99285-25; A9270; J0690; J1940; J2405; J7050

== ENCOUNTER 2020-11-04 11:07 | Day surgery (SDC) | payer MEDICARE ==
[~2020-11-04] VITALS: Ht 182.9 cm; Wt 94.5 kg
[~2020-11-04 11:07] MED LIST changes: +CEPH500 PO
--- NOTE | 2020-11-04 12:49 | NUR ---
1232 DR. OLIVER ARRIVED. SPOKE WITH PATIENT. REVIEWED PPM REPORT FROM PPM INTERROGATION. AFIB NOTED UNDERLYING RHYTHM. TIME OUT PERFORMED, PATIENT JEFERSON MCGARRY, 85 YR OLD MALE 1935, HERE FOR DCCV WITH DR. OLIVER. CONSENT SIGNED AND SEDATION ASSESSMENT COMPLETE. PATIENT ON THE MONITOR, OXYGEN 4 LPM BNC IN USE. DEFIB AT THE BEDSIDE AND P[AD PLACEMENT VERIFIED BY MD AND RN. SEDATION STARTED AT 1234. 1 MG VERSED IV AT 1234 25 MCG FENTANYL IV AT 1234 1 MG VERSED IV AT 1236 25 MCG FENTANYL IV AT 1236 PATIENT NOTED TO BE SEDATED AT 1236 DCCV PERFORMED AT 120 JOULES, SYNC ON, SHOCKED DELIVERED, CONVERTED TO SINUS RHYTHM. PACER INTERROGATION PERFORMED AT THE BEDSIDE AND SINUS CONFIRMED. 12 LEAD IRAIS DONE AT THE BEDSIDE AND REVIEWED BY DR. OLIVER. 1245 PATIENT AWAKES WITH VERBAL STIMULI. DR. OLIVER SPOKE WITH THE PATIENT AND THE SPOKE WITH THE IN THE WAITING ROOM. 1255 CONITNUE TO MONITOR PATIENT UNTIL FULLY AWAKE.
[2020-11-04] MEDS ORDERED: Amiodarone HCl200 MG PO (12:59)
--- NOTE | 2020-11-04 13:43 | NUR ---
1325 PATIENT UP AND DRESSED, PIV REMOVED. REVIEWED DISCHARGE INSTRUCTIONS WITH THE PATIENT AND . WHEELCHAIR TO THE CAR, LIN[place] DRIVING HOME. FOLLOW UP APPOINTMENT ON NOVEMBER 12, 2020 @ 1:15 P.M. NO CHANGES IN MEDICAITONS, CONTINUE DIRECTED. PATIENT VERBALIZED UNDERSTANDING AND HAS NO FURTHER QUESTIONS.
[2021-03-09] MEDS ORDERED: METOPROLOL SUCC25 MG PO (13:46)
[2021-03-09] MEDS ORDERED: FERSU300 PO (13:47)
[2021-03-09] MEDS ORDERED: LEVEMIR FL100 UNIT/2 SC (13:47)
[2021-03-09] MEDS ORDERED: ELIQUIS5 M2 PO (13:48)
== END 2020-11-04 22:50 | disposition home or self-care (01) ==
LOC: MHTC 11:07
DX: I48.91 Unspecified atrial fibrillation (principal); I10 Essential (primary) hypertension; E11.9 Type 2 diabetes mellitus without complications; I25.2 Old myocardial infarction; Z95.1 Presence of aortocoronary bypass graft; Z79.4 Long term (current) use of insulin; Z95.0 Presence of cardiac pacemaker
CPT/HCPCS: 92960; 93005; 93010; 99152; J2250; J3010; J7040

== ENCOUNTER 2021-03-10 11:21 | Day surgery (SDC) | payer MEDICARE ==
[~2021-03-10 11:21] MED LIST changes: +Amiodarone HCl200 MG PO; +ELIQUIS5 M2 PO; +FERSU300 PO; +LEVEMIR FL100 UNIT/2 SC; +METOPROLOL SUCC25 MG PO
--- NOTE | 2021-03-10 12:51 | NUR ---
ANESTHESIA AND GRAPHIC ART SALES REPRESENTATIVE HAVE LEFT THE ROOM. PT STABLE.
--- NOTE | 2021-03-10 13:11 | NUR ---
PT ALERT AND TALKING WITH STAFF. SIDERAILS UP X2. PT REQUESTION OJ TO DRINK
== END 2021-03-10 23:00 | disposition home or self-care (01) ==
LOC: MHTC 11:21
DX: I48.91 Unspecified atrial fibrillation (principal); I25.5 Ischemic cardiomyopathy; Z95.0 Presence of cardiac pacemaker; I25.10 Atherosclerotic heart disease of native coronary artery without angina pectoris; E11.9 Type 2 diabetes mellitus without complications; Z87.891 Personal history of nicotine dependence; Z79.01 Long term (current) use of anticoagulants; Z79.4 Long term (current) use of insulin; Z79.899 Other long term (current) drug therapy
CPT/HCPCS: 82947; 92960; 93005; 93010; J2704; J7030; J7042

== ENCOUNTER 2021-03-13 13:51 | Inpatient (IN) | payer OTHER, MEDICARE ==
[~2021-03-13] VITALS: Ht 182.9 cm; Wt 93.0 kg
[2021-03-13 14:27] LABS: BASOPHILS ABSOLUTE AUTO 0.04 K/mm3 (0.00-0.23); BASOPHILS PERCENT AUTO 1 % (0-2); EOSINOPHILS ABSOLUTE AUTO 0.09 K/mm3 (0.00-0.68); EOSINOPHILS PERCENT AUTO 2 % (0-6); Hematocrit 39.1 % (37.0-53.0); Hemoglobin 12.8 g/dL (13.5-17.5); IMMATURE GRAN ABSOLUTE AUTO 0.02 K/mm3 (0.00-0.10); IMMATURE GRAN PERCENT AUTO 0 % (0-1); LYMPHOCYTES ABSOLUTE AUTO 0.76 K/mm3 (0.84-5.20); LYMPHOCYTES PERCENT AUTO 14 % (21-46); MONOCYTES ABSOLUTE AUTO 0.41 K/mm3 (0.16-1.47); MONOCYTES PERCENT AUTO 8 % (4-13); Mean Corpuscular HGB 30.7 pg (26.0-34.0); Mean Corpuscular HGB Conc 32.7 g/dL (31.5-36.5); Mean Corpuscular Volume 94 fL (80-100); Mean Platelet Volume 10.2 fL (9.1-12.4); NEUTROPHILS ABSOLUTE AUTO 4.13 K/mm3 (1.96-9.15); NEUTROPHILS PERCENT AUTO 76 % (41-73); Platelet Count 123 K/mm3 (150-400); RDW Coefficient Variation 15.4 % (11.7-14.2); RDW Standard Deviation 53.1 fL (35.1-46.3); Red Blood Cell Count 4.17 M/mm3 (4.30-5.90); White Blood Cell Count 5.45 K/mm3 (4.00-11.30)
[2021-03-13 14:50] LABS: Albumin, Blood 3.5 g/dL (3.4-5.0); Bilirubin, Total 0.7 mg/dL (0.1-1.0); Bun/Creatinine Ratio 24.1 (12.0-20.0); Calcium, Blood 9.2 mg/dL (8.5-10.1); Creatinine, Blood 2.32 mg/dL (0.60-1.20); Globulin, Blood 3.5 g/dL (2.2-4.0); Potassium, Blood 5.2 mmol/L (3.5-5.5); Troponin I 0.031 ng/mL (0.000-0.040)
[2021-03-13 23:26] LABS: Troponin I 0.031 ng/mL (0.000-0.040)
[2021-03-14 00:38] LABS: Source, Urine Clean Catch
[2021-03-14 00:40] LABS: Bilirubin, Urine Neg (Neg); Blood, Urine 1+ (Neg); Glucose Qualitative, Urine Neg (Neg); Ketones, Urine Neg (Neg); Leukocyte Esterase, Urine Neg (Neg); Nitrite, Urine Neg (Neg); Protein, Urine 1+ (Neg); Urobilinogen, Urine NORM (Normal)
--- NOTE | 2021-03-14 00:44 | NUR ---
PATIENT IS A NEW ADMIT FROM THE ED. ARRIVED VIA W/C AXOX 4 AND SBA TO BED. REPORTS SOB W/EXERTION. ON ROOM AIR. DENIES CHEST PAIN AND N/V. PACEMAKER ADALID CHEST. ED RN REPORTS PATIENT RECEIVED IV LASIX AND USING URINAL AT BEDSIDE. URNINE SAMPLE COLLECTED AND SENT TO LAB. PATIENT ORIENTED TO ROOM AND CALL LIGHT SYSTEM. REPORTS SPOUSE WILL BE BACK IN TUESDAY. PATIENT WANTING TO SLEEP AFTER ASSESSMENT IS COMPLETE. CALL LIGHT IN REACH.
[2021-03-14 00:45] LABS: Appearance, Urine Clear (Clear); Bacteria Not Seen /hpf; Color, Urine Yellow (P-Yellow); Red Blood Cells, Urine 0-2 /hpf (0-2); Squamous Epithelial Cells Not Seen /hpf (Few); White Blood Cells, Urine Not Seen /hpf (0-5)
--- NOTE | 2021-03-14 02:07 | NUR ---
TELEMETRY PLACED AND TECH REPORTS PACED HIGH 50'S AND 60'S.
--- NOTE | 2021-03-14 03:36 | NUR ---
SHIFT SUMMARY PATIENT HAD NO ACUTE CHANGES OBSERVED. AXOX 4 AND SBA TO STAND USING URINAL AT BEDSIDE. URINE COLLECTED AND SENT TO LAB. PIV REMAINS INTACT. TELE TU REPORTS PACED HIGH 50'S AND INTO 60'S. DENIES CHEST PAIN AND N/V. SOB WITH EXERTION. ON ROOM AIR. REPORTS LARGE LEFT TOE WRAPPED FROM WOUND CARE AT [facility] AND ABOUT HEALED. VSS/AFEBRILE. PATIENT ABLE TO SLEEP MOST OF THE NIGHT. CALL LIGHT IN REACH. BED IN LOWEST POSITION. WILL CONTINUE TO MONITOR UNTIL DAY SHIFT NURSE ASSUMES CARE.
[2021-03-14 06:56] LABS: BASOPHILS ABSOLUTE AUTO 0.04 K/mm3 (0.00-0.23); BASOPHILS PERCENT AUTO 1 % (0-2); EOSINOPHILS ABSOLUTE AUTO 0.14 K/mm3 (0.00-0.68); EOSINOPHILS PERCENT AUTO 3 % (0-6); Hematocrit 38.6 % (37.0-53.0); Hemoglobin 12.9 g/dL (13.5-17.5); IMMATURE GRAN ABSOLUTE AUTO 0.01 K/mm3 (0.00-0.10); IMMATURE GRAN PERCENT AUTO 0 % (0-1); LYMPHOCYTES ABSOLUTE AUTO 1.15 K/mm3 (0.84-5.20); LYMPHOCYTES PERCENT AUTO 27 % (21-46); MONOCYTES ABSOLUTE AUTO 0.32 K/mm3 (0.16-1.47); MONOCYTES PERCENT AUTO 8 % (4-13); Mean Corpuscular HGB 31.2 pg (26.0-34.0); Mean Corpuscular HGB Conc 33.4 g/dL (31.5-36.5); Mean Corpuscular Volume 94 fL (80-100); Mean Platelet Volume 10.2 fL (9.1-12.4); NEUTROPHILS ABSOLUTE AUTO 2.58 K/mm3 (1.96-9.15); NEUTROPHILS PERCENT AUTO 61 % (41-73); Platelet Count 109 K/mm3 (150-400); RDW Coefficient Variation 15.5 % (11.7-14.2); RDW Standard Deviation 53.1 fL (35.1-46.3); Red Blood Cell Count 4.13 M/mm3 (4.30-5.90); White Blood Cell Count 4.24 K/mm3 (4.00-11.30)
[2021-03-14 07:23] LABS: Albumin, Blood 3.6 g/dL (3.4-5.0); Albumin/Globulin Ratio 1.1 (0.8-1.8); Bilirubin, Total 1.1 mg/dL (0.1-1.0); Calcium, Blood 9.4 mg/dL (8.5-10.1); Creatinine, Blood 2.32 mg/dL (0.60-1.20); Globulin, Blood 3.2 g/dL (2.2-4.0); Potassium, Blood 4.6 mmol/L (3.5-5.5); Total Protein, Blood 6.8 g/dL (6.4-8.2); Troponin I 0.036 ng/mL (0.000-0.040)
--- NOTE | 2021-03-14 16:11 | NUR ---
SHIFT SUMMARY PT A/O X4; PLEASANT AND COOPERATIVE WITH CARE. PT REPORTS THAT HE FEELS MUCH BETTER TODAY. HE AMBULATES TO THE BATHROOM WITH A SBA/IND. GIVEN LASIX THIS AM AND VOIDING. HOWEVER, HAD A RENAL ULTRASOUND TODAY WHICH SHOWED A LARGE VOLUME IN HIS BLADDER. BLADDER SCAN Q6 AND STRAIGHT CATH PER EMR ORDERS. REPORTS THAT HE IS ABLE TO AMBULATE SHORT DISTANCES ONLY AND FEELS VERY FATIGUED WHEN AMBULATING OVER 20 FEET. REPORTS NO CP/PRESSURE. VSS. WILL POSSIBLY DC TOMORROW.
--- NOTE | 2021-03-15 03:26 | NUR ---
SHIFT SUMMARY PATIENT HAD NO ACUTE CHANGES OBSERVED. AXOX 4 AND SBA TO BATHROOM. SOB WITH EXERTION. ON ROOM AIR. DENIES PAIN AND N/V. PIV REMAINS INTACT. JOURNEYMAN PATTERNMAKER REPORTS PACED IN 60'S. USES URINAL AT BEDSIDE. VSS/AFEBRILE. COOPERATIVE WITH CARE. CALL LIGHT IN REACH. BED IN LOWEST POSITION. WILL CONTINUE TO MONITOR UNTIL DAY SHIFT NURSE ASSUMES CARE.
--- NOTE | 2021-03-15 12:50 | NUR ---
DISCHARGE PT WAS PROVIDED WITH WRITTEN AND VERBAL DISCHARGE INSTRUCTIONS; HE REPORTED UNDERSTANDING. PT HAS GIVEN EDUCATION ABOUT DASH, AND ADA DIET'S. PT ENCOURAGED TO FOLLOW-UP WITH PCP SOON POSSIBLE. PT LEFT AT APPROXIMATELY 1250.
== END 2021-03-15 12:45 | disposition home or self-care (01) | DRG 291 ==
LOC: ER 13:51 → MEDS 13:52
PROVIDERS: Physician Assistant; ADMIT Internal Medicine
DX: I13.0 Hypertensive heart and chronic kidney disease with heart failure and stage 1 through stage 4 chronic kidney disease, or unspecified chronic kidney disease (principal); I50.23 Acute on chronic systolic (congestive) heart failure; I48.20 Chronic atrial fibrillation, unspecified; N17.9 Acute kidney failure, unspecified; N18.30 Chronic kidney disease, stage 3 unspecified; I25.10 Atherosclerotic heart disease of native coronary artery without angina pectoris; E11.22 Type 2 diabetes mellitus with diabetic chronic kidney disease; I25.2 Old myocardial infarction; E78.5 Hyperlipidemia, unspecified; Z79.01 Long term (current) use of anticoagulants; Z86.718 Personal history of other venous thrombosis and embolism; Z79.899 Other long term (current) drug therapy; Z79.84 Long term (current) use of oral hypoglycemic drugs; Z95.1 Presence of aortocoronary bypass graft
CPT/HCPCS: 36415; 71046; 76770; 80053; 81001; 82550; 82947; 83880; 84484; 85025; 93005; 93010; 96372; 96374; 96376; 99285-25; A9270; G0378; J1650; J1940

== ENCOUNTER 2021-03-26 17:59 | Inpatient (IN) | payer OTHER, MEDICARE ==
[~2021-03-26] VITALS: Ht 182.9 cm; Wt 94.2 kg
[~2021-03-26 17:59] MED LIST changes: -ALLO300 PO; -AMIT25 PO; -Amiodarone HCl200 MG PO; -CYAN500 PO; -ELIQUIS5 M2 PO; -LEVEMIR FL100 UNIT/2 SC; -TAMS.4ER PO; -TORSE20 PO
[2021-03-26] MEDS ORDERED: ALLO300 PO (20:25)
[2021-03-26] MEDS ORDERED: ALOGLIPTIN6.25 M1 PO (20:26)
[2021-03-26] MEDS ORDERED: AMIT25 PO (20:27)
[2021-03-26] MEDS ORDERED: ELIQUIS2.5 MG PO (20:28)
[2021-03-26] MEDS ORDERED: LANTUS SOL100 UNIT/1 SC (20:30)
[2021-03-26] MEDS ORDERED: TORSE20 PO (20:31)
[2021-03-26] MEDS ORDERED: TAMS.4ER PO (20:31)
[2021-03-26 20:39] LABS: BASOPHILS ABSOLUTE AUTO 0.03 K/mm3 (0.00-0.23); BASOPHILS PERCENT AUTO 1 % (0-2); EOSINOPHILS ABSOLUTE AUTO 0.08 K/mm3 (0.00-0.68); EOSINOPHILS PERCENT AUTO 2 % (0-6); Hematocrit 39.4 % (37.0-53.0); Hemoglobin 13.1 g/dL (13.5-17.5); IMMATURE GRAN ABSOLUTE AUTO 0.01 K/mm3 (0.00-0.10); IMMATURE GRAN PERCENT AUTO 0 % (0-1); LYMPHOCYTES ABSOLUTE AUTO 0.75 K/mm3 (0.84-5.20); LYMPHOCYTES PERCENT AUTO 14 % (21-46); MONOCYTES ABSOLUTE AUTO 0.44 K/mm3 (0.16-1.47); MONOCYTES PERCENT AUTO 8 % (4-13); Mean Corpuscular HGB 31.1 pg (26.0-34.0); Mean Corpuscular HGB Conc 33.2 g/dL (31.5-36.5); Mean Corpuscular Volume 94 fL (80-100); Mean Platelet Volume 10.9 fL (9.1-12.4); NEUTROPHILS ABSOLUTE AUTO 4.09 K/mm3 (1.96-9.15); NEUTROPHILS PERCENT AUTO 76 % (41-73); Platelet Count 114 K/mm3 (150-400); RDW Coefficient Variation 16.5 % (11.7-14.2); RDW Standard Deviation 55.8 fL (35.1-46.3); Red Blood Cell Count 4.21 M/mm3 (4.30-5.90)
[2021-03-26] MEDS ORDERED: Amiodarone HCl200 MG PO (20:44)
[2021-03-26] MEDS ORDERED: ATOR40TA PO (20:45)
[2021-03-26] MEDS ORDERED: VITAMIN B-1250 MCG PO (20:45)
[2021-03-26] MEDS ORDERED: LUBRICATING TEA15 ML BOTHEYES (20:46)
[2021-03-26] MEDS ORDERED: GLUCOSE4 GM PO (20:47)
[2021-03-26 20:51] LABS: Albumin, Blood 3.5 g/dL (3.4-5.0); Calcium, Blood 9.4 mg/dL (8.5-10.1); Creatinine, Blood 3.17 mg/dL (0.60-1.20); Globulin, Blood 3.4 g/dL (2.2-4.0); Potassium, Blood 4.6 mmol/L (3.5-5.5); Total Protein, Blood 6.9 g/dL (6.4-8.2); Troponin I 0.11 ng/mL (0.000-0.040)
[2021-03-27 02:22] LABS: BASOPHILS ABSOLUTE AUTO 0.03 K/mm3 (0.00-0.23); BASOPHILS PERCENT AUTO 1 % (0-2); EOSINOPHILS ABSOLUTE AUTO 0.12 K/mm3 (0.00-0.68); EOSINOPHILS PERCENT AUTO 3 % (0-6); Hematocrit 37.3 % (37.0-53.0); Hemoglobin 12.5 g/dL (13.5-17.5); IMMATURE GRAN ABSOLUTE AUTO 0.01 K/mm3 (0.00-0.10); IMMATURE GRAN PERCENT AUTO 0 % (0-1); LYMPHOCYTES ABSOLUTE AUTO 0.98 K/mm3 (0.84-5.20); LYMPHOCYTES PERCENT AUTO 24 % (21-46); MONOCYTES ABSOLUTE AUTO 0.35 K/mm3 (0.16-1.47); MONOCYTES PERCENT AUTO 9 % (4-13); Mean Corpuscular HGB 31.4 pg (26.0-34.0); Mean Corpuscular HGB Conc 33.5 g/dL (31.5-36.5); Mean Corpuscular Volume 94 fL (80-100); Mean Platelet Volume 10.5 fL (9.1-12.4); NEUTROPHILS ABSOLUTE AUTO 2.61 K/mm3 (1.96-9.15); NEUTROPHILS PERCENT AUTO 64 % (41-73); Platelet Count 107 K/mm3 (150-400); RDW Coefficient Variation 16.4 % (11.7-14.2); RDW Standard Deviation 55.2 fL (35.1-46.3); Red Blood Cell Count 3.98 M/mm3 (4.30-5.90)
[2021-03-27 02:44] LABS: Albumin, Blood 3.2 g/dL (3.4-5.0); Albumin/Globulin Ratio 1.1 (0.8-1.8); Bilirubin, Total 1.1 mg/dL (0.1-1.0); Bun/Creatinine Ratio 18.7 (12.0-20.0); Calcium, Blood 8.9 mg/dL (8.5-10.1); Creatinine, Blood 3.05 mg/dL (0.60-1.20); Total Protein, Blood 6.2 g/dL (6.4-8.2); Troponin I 0.112 ng/mL (0.000-0.040)
--- NOTE | 2021-03-27 03:26 | NUR ---
UA OBTAINED AND SENT.
[2021-03-27 03:39] LABS: Source, Urine Clean Catch
[2021-03-27 03:47] LABS: Bilirubin, Urine Neg (Neg); Blood, Urine 2+ (Neg); Glucose Qualitative, Urine Neg (Neg); Ketones, Urine Neg (Neg); Leukocyte Esterase, Urine Neg (Neg); Nitrite, Urine Neg (Neg); Protein, Urine 2+ (Neg); Urobilinogen, Urine NORM (Normal)
[2021-03-27 03:53] LABS: Appearance, Urine Clear (Clear); Color, Urine Yellow (P-Yellow)
[2021-03-27 03:54] LABS: Amorphous Mod (0-Heavy); Bacteria Not Seen /hpf; Squamous Epithelial Cells Not Seen /hpf (Few); White Blood Cells, Urine Rare /hpf (0-5)
--- NOTE | 2021-03-27 05:24 | NUR ---
SHIFT SUMMARY: PT IS ALERT AND ORIENTED. PT IS CALM AND COOPERATIVE WITH CARE. PT CALLS APPROPRIATELY. PT IS A STANDBY ASSIST WITH FWW. PT DENIES PAIN, NAUSEA, VOMITING, AND SOB. PT SLEPT MUCH OF THE NIGHT AFTER DISCHARGE. NO ACUTE CHANGES OR COMPLICATIONS THIS SHIFT. BED IN LOW POSITION, CALL LIGHT WITHIN REACH. WILL CONTINUE TO MONITOR.
[2021-03-27 11:04] LABS: Troponin I 0.101 ng/mL (0.000-0.040)
--- NOTE | 2021-03-27 17:28 | NUR ---
SHIFT SUMMARY PATIENT SITTING UP IN BED, ALERT, ORIENTED, PLEASANT AND COOPERATIVE. RECIEVED A KIDNEY ULTRASOUND AROUND 0800 AND WORKED WITH PT ON WALKING AND USING THE STAIRS TO PREPARE HIM FOR HOME. PATIENT DENIES PAIN OR SOB (EXCEPT WITH WALKING) AND DOCTOR AND PATIENT HOPEFUL TO DISCHARGE TOMORROW.
[2021-03-28 05:40] LABS: Anion Gap 8 mmol/L (6-16); Blood Urea Nitrogen 52 mg/dL (8-24); Bun/Creatinine Ratio 17.7 (12.0-20.0); CO2, Blood 23 mmol/L (21-32); Calcium, Blood 8.8 mg/dL (8.5-10.1); Chloride, Blood 107 mmol/L (98-108); Creatinine, Blood 2.94 mg/dL (0.60-1.20); Glomerular Filtration Rate 20 (60-); Glucose, Blood 161 mg/dL (70-99); Phosphorus, Blood 3.2 mg/dL (2.5-4.9); Potassium, Blood 4.1 mmol/L (3.5-5.5); Sodium, Blood 138 mmol/L (136-145)
--- NOTE | 2021-03-28 07:38 | NUR ---
SHIFT SUMMARY A/O, ABLE TO MAKE NEEDS KNOWN. COOPERATIVE WITH CARE. CALLS AND ANSWERS QUESTIONS APPROPRIATELY. NO C/O PAIN/DISCOMFORT. APPEARED TO REST MUCH OF THE NIGHT. UP TO IN ROOM INDEPENDENTLY. NO ACUTE CHANGES NOTED OVERNIGHT. BED REMAINED IN LOWEST POSITION. CALL LIGHT AND BELONGINGS WITHIN REACH. CONTINUE WITH CURRENT PLAN OF CARE. REPORT GIVEN TO ONCOMING RN.
--- NOTE | 2021-03-28 13:09 | NUR ---
Echocardiogram completed.
--- NOTE | 2021-03-28 17:27 | NUR ---
PATIENT IS A/O AMD CALLS APPROPRIATELY. PATIENT IS INDEPENDENT IN ROOM. DENIES ANY PAIN OR DISCOMFORT. PATIENT HAD AN ECHOCARDIOGRAM TODAY AND HAS AN EVS MANAGER CONSULT PENDING PER DOCTOR TLAANG. VITAL SIGNS STABLE, POSSESSIONS AND CALL LIGHT ARE WITHIN REACH, BED IN LOWEST POSITION. BLOOD SUGARS MONITERED PER SLIDING SCALE/COVERAGE INDICATED.
[2021-03-29 05:59] LABS: Anion Gap 5 mmol/L (6-16); Blood Urea Nitrogen 43 mg/dL (8-24); Bun/Creatinine Ratio 16.9 (12.0-20.0); CO2, Blood 27 mmol/L (21-32); Calcium, Blood 8.8 mg/dL (8.5-10.1); Chloride, Blood 109 mmol/L (98-108); Creatinine, Blood 2.55 mg/dL (0.60-1.20); Glomerular Filtration Rate 24 (60-); Glucose, Blood 143 mg/dL (70-99); Phosphorus, Blood 2.8 mg/dL (2.5-4.9); Potassium, Blood 3.7 mmol/L (3.5-5.5); Sodium, Blood 141 mmol/L (136-145)
--- NOTE | 2021-03-29 06:04 | NUR ---
SHIFT SUMMARY A/O, ABLE TO MAKE NEEDS KNOWN. COOPERATIVE WITH CARE. CALLS AND ANSWERS QUESTIONS APPROPRIATELY. C/O PAIN/DISCOMFORT; MEDICATED PER EMAR. APPEARED TO REST MUCH OF THE NIGHT. INDEPENDENT IN THE ROOM. NO ACUTE CHANGES NOTED OVERNIGHT. VSS/AFEBRILE. BED REMAINS IN LOWEST POSITION. CALL LIGHT AND BELONGINGS WITHIN REACH. CONTINUE WITH CURRENT PLAN OF CARE. REPORT TO ONCOMING RN.
--- NOTE | 2021-03-29 18:16 | NUR ---
PT IS A/O COOPERATIVE WITH CARE, AND USES THE CALL LIGHT APPROPRIATELY. THE PT HAD A CONSULT FROM A ORNAMENTAL RAIL INSTALLER TODAY, AND WAS STARTED ON COREG AND HAS BEEN TOLERATING IT WELL. PT WILL POSSIBLY HAVE A CONSULT WITH A SPECIALIST AT [facility] IN THE AM REGARDING A HEART PROCEDURE. PT DENIES ANY PAIN OR DISCOMFORT. CALL LIGHT WITHIN REACH W/ BED IN LOWEST POSTION.
--- NOTE | 2021-03-30 05:19 | NUR ---
SHIFT SUMMARY: A&0 CALM COOPERATIVE OOB BRP INDEPENDENT IN ROOM STEADY GAIT. TELE BBB PACED 59 VS STABLE SLEPT THROUGHOUT THIS SHIFT 7.5HRS. CALL LIGHT WITHIN REACH BED LOWERED SIDERAILS UP HOB @30. DENIES CHEST PAIN OR DISCOMFORT AT THIS TIME. APPEARS TO BE RESTING COMFORTABLY.
[2021-03-30 08:11] LABS: Albumin, Blood 3.6 g/dL (3.4-5.0); Anion Gap 5 mmol/L (6-16); Blood Urea Nitrogen 36 mg/dL (8-24); CO2, Blood 27 mmol/L (21-32); Calcium, Blood 9.3 mg/dL (8.5-10.1); Chloride, Blood 108 mmol/L (98-108); Creatinine, Blood 2.12 mg/dL (0.60-1.20); Glomerular Filtration Rate 30 (60-); Glucose, Blood 152 mg/dL (70-99); Phosphorus, Blood 2.7 mg/dL (2.5-4.9); Sodium, Blood 140 mmol/L (136-145)
[2021-03-30 12:39] LABS: SARS-Cov-2 (COVID-19) PCR, MMC NEGATIVE (NEGATIVE)
--- NOTE | 2021-03-30 17:15 | NUR ---
SUMMARY PT SITTING UP IN THE CHAIR AT THE BEDSIDE VISITING WITH HIS SPOUSE, PT HAS BEEN PLEASANT AND COOPERATIVE WITH CARE, INDUSTRIAL TWISTING MACHINE OPERATOR DR GREGORIO CAME TO SEE THE PT EARLY THIS MORNING AND THE PLAN IS TO PLACE A PACER/DEFIB IN THE PT TOMORROW, PT IS IN AGREEMENT, PT WORKED WITH PT/OT AND HAS WALKED UP IN THE HALLS, NO COMPLAINTS, VSS, WILL CONT TO MONITOR
--- NOTE | 2021-03-31 06:30 | NUR ---
SHIFT SUMMARY: AOX3, CABAZON, PLEASANT AND COOPERATIVE. ONLY COMPLAINT IS WEAKNESS AND SOB WHEN HE GETS UP AND MOVES. NO PAIN, CP, DIZZINESS, LIGHTHEADNESS. LUNGS ARE CLEAR. TELE REPORTED PACED, NO EDEMA. REGULAR BM, GOOD APPETITE. IMPROVING WITH PT/OT. PLAN IS TO DO PACEMAKER/DEFIB PLACEMENT TODAY. NPO SINCE MIDNIGHT. NO ACUTE CHANGES TO NOTE, VSS. CALL LIGHT IN REACH.
--- NOTE | 2021-03-31 07:50 | NUR ---
PT ON [facility] WAY [facility] NOW, PARTS DEPARTMENT SUPERVISOR NOTIFIED
--- NOTE | 2021-03-31 09:40 | NUR ---
REPORT CALLED TO VENANCIO RN, PT TO GO TO ROOM 230 POST PROCEDURE
--- NOTE | 2021-03-31 09:43 | NUR ---
SPOKE WITH PT'S SPOUSE AND LET HER KNOW PT WILL BE GOING TO ROOM 230
--- NOTE | 2021-03-31 12:46 | NUR ---
Pt. is not in the room [facility].
--- NOTE | 2021-03-31 14:10 | NUR ---
ARRIVAL TO UNIT ARRIVES VIA HOSP BED. ALERT, ORIENTED. VSS. LUNGS CLEAR. TELE IN PLACE. CALL TO TELE TO UPDATE TECH. PT IS PACED @ 60 PER SKIN TANNERANGEL PLASENCIA. PRESSURE DRESSING IN PLACE TO L CW. NO DRAINAGE NOTED. SKIN SURROUNDING WNL. L ARM SLING PLACED. ICE WATER GIVEN.
--- NOTE | 2021-03-31 19:19 | NUR ---
SHIFT SUMMARY SINCE ARRIVING TO THE UNIT @ 1410, HAS BEEN APPROPRIATE. CHEST XRAY COMPLETE. SLING & TELE IN PLACE SINCE ARRIVAL. EATING, DRINKING, VOIDING WELL. NO S/S OF BLEEDING AT SURG SITE.
[2021-03-31 20:40] LABS: Albumin, Blood 3.3 g/dL (3.4-5.0); Anion Gap 2 mmol/L (6-16); Blood Urea Nitrogen 32 mg/dL (8-24); Bun/Creatinine Ratio 16.1 (12.0-20.0); CO2, Blood 30 mmol/L (21-32); Calcium, Blood 8.7 mg/dL (8.5-10.1); Chloride, Blood 105 mmol/L (98-108); Creatinine, Blood 1.99 mg/dL (0.60-1.20); Glomerular Filtration Rate 32 (60-); Glucose, Blood 295 mg/dL (70-99); Phosphorus, Blood 2.7 mg/dL (2.5-4.9); Potassium, Blood 4.4 mmol/L (3.5-5.5); Sodium, Blood 137 mmol/L (136-145)
--- NOTE | 2021-04-01 04:44 | NUR ---
SHIFT SUMMARY NO ACUTE CHANGES. PT REPORTS SOME TENDERNESS TO LEFT SHOULDER, BUT DENIES NEED FOR PAIN MEDS. USING ICE PRN. DRESSING TO LEFT CHEST WALL REMAINS CDI. TELE PACED AT 60. INDEP TO RESTROOM. USES CALL LIGHT APPROPRIATELY.
[2021-04-01 05:22] LABS: Albumin, Blood 3.4 g/dL (3.4-5.0); Anion Gap 3 mmol/L (6-16); Blood Urea Nitrogen 32 mg/dL (8-24); Bun/Creatinine Ratio 16.7 (12.0-20.0); CO2, Blood 29 mmol/L (21-32); Calcium, Blood 9.2 mg/dL (8.5-10.1); Chloride, Blood 106 mmol/L (98-108); Creatinine, Blood 1.92 mg/dL (0.60-1.20); Glomerular Filtration Rate 33 (60-); Glucose, Blood 243 mg/dL (70-99); Phosphorus, Blood 2.6 mg/dL (2.5-4.9); Potassium, Blood 4.3 mmol/L (3.5-5.5); Sodium, Blood 138 mmol/L (136-145)
[2021-04-01 07:35] LABS: BASOPHILS ABSOLUTE AUTO 0.03 K/mm3 (0.00-0.23); BASOPHILS PERCENT AUTO 1 % (0-2); EOSINOPHILS ABSOLUTE AUTO 0.04 K/mm3 (0.00-0.68); EOSINOPHILS PERCENT AUTO 1 % (0-6); Hematocrit 39.2 % (37.0-53.0); Hemoglobin 12.6 g/dL (13.5-17.5); IMMATURE GRAN ABSOLUTE AUTO 0.02 K/mm3 (0.00-0.10); IMMATURE GRAN PERCENT AUTO 0 % (0-1); LYMPHOCYTES ABSOLUTE AUTO 0.59 K/mm3 (0.84-5.20); LYMPHOCYTES PERCENT AUTO 9 % (21-46); MONOCYTES ABSOLUTE AUTO 0.55 K/mm3 (0.16-1.47); MONOCYTES PERCENT AUTO 8 % (4-13); Mean Corpuscular HGB 30.9 pg (26.0-34.0); Mean Corpuscular HGB Conc 32.1 g/dL (31.5-36.5); Mean Corpuscular Volume 96 fL (80-100); Mean Platelet Volume 10.6 fL (9.1-12.4); NEUTROPHILS ABSOLUTE AUTO 5.32 K/mm3 (1.96-9.15); NEUTROPHILS PERCENT AUTO 81 % (41-73); Platelet Count 108 K/mm3 (150-400); RDW Coefficient Variation 16.5 % (11.7-14.2); RDW Standard Deviation 57.8 fL (35.1-46.3); Red Blood Cell Count 4.08 M/mm3 (4.30-5.90); White Blood Cell Count 6.55 K/mm3 (4.00-11.30)
[2021-04-01] MEDS ORDERED: CARV3.125 PO (13:30)
[2021-04-01] MEDS ORDERED: HUMALOG KW100 UNIT/1 SC (13:43)
--- NOTE | 2021-04-01 14:11 | NUR ---
DISCHARGE PT IN PLEASENT MOOD. A&O X4 PT WAS PROVIDED WITH VERBAL AND WRITTEN INSTRUCTION, PT VERBALIZED UNDERSTANDING. PT EDUCATED ON IMPORTANCE OF FOLLOW UP APPOINTMENT WITH CRM DYNAMICS DEVELOPER. PT CLEARED FOR DISCHARGE BY CRM DYNAMICS DEVELOPER THIS AFTERNOON. PT TOLLERATING FOOD AND FLUIDS. PT ABLE TO SAFELY AMBULATE. PT REMOVED FROM TELEMETRY, MONITORING WNL. ESCORTED TO [facility] WHERE WAITING WITH TRANSPORTATION BY KARLEE HAYNES.
== END 2021-04-01 14:11 | disposition home or self-care (01) | DRG 245 ==
LOC: ER 17:59 → MEDS 18:00 → ER 21:32 → MEDS 22:09 → SURS 03-31 10:33
PROVIDERS: Emergency Medicine; Internal Medicine; Internal Medicine Cardiovascular Disease; ADMIT Internal Medicine
PROC: 0JH609Z Insertion of Cardiac Resynchronization Defibrillator Pulse Generator into Chest Subcutaneous Tissue and Fascia, Open Approach (ICD-10-PCS; principal; 2021-03-31)
PROC: 0JPT0PZ Removal of Cardiac Rhythm Related Device from Trunk Subcutaneous Tissue and Fascia, Open Approach (ICD-10-PCS; 2021-03-31)
PROC: 02PA3MZ Removal of Cardiac Lead from Heart, Percutaneous Approach (ICD-10-PCS; 2021-03-31)
PROC: 02HK3JZ Insertion of Pacemaker Lead into Right Ventricle, Percutaneous Approach (ICD-10-PCS; 2021-03-31)
DX: I13.0 Hypertensive heart and chronic kidney disease with heart failure and stage 1 through stage 4 chronic kidney disease, or unspecified chronic kidney disease (principal); I50.23 Acute on chronic systolic (congestive) heart failure; I48.20 Chronic atrial fibrillation, unspecified; N17.9 Acute kidney failure, unspecified; Z20.822 Contact with and (suspected) exposure to COVID-19; E11.22 Type 2 diabetes mellitus with diabetic chronic kidney disease; I25.2 Old myocardial infarction; E78.5 Hyperlipidemia, unspecified; I87.8 Other specified disorders of veins; N18.30 Chronic kidney disease, stage 3 unspecified; I49.5 Sick sinus syndrome; I25.5 Ischemic cardiomyopathy; R19.7 Diarrhea, unspecified; R53.81 Other malaise; L65.9 Nonscarring hair loss, unspecified; H18.419 Arcus senilis, unspecified eye; H91.90 Unspecified hearing loss, unspecified ear; M40.209 Unspecified kyphosis, site unspecified; E11.65 Type 2 diabetes mellitus with hyperglycemia; N40.0 Benign prostatic hyperplasia without lower urinary tract symptoms; M10.9 Gout, unspecified; I27.20 Pulmonary hypertension, unspecified; E11.649 Type 2 diabetes mellitus with hypoglycemia without coma; Z79.01 Long term (current) use of anticoagulants; Z95.0 Presence of cardiac pacemaker; Z95.1 Presence of aortocoronary bypass graft; Z86.718 Personal history of other venous thrombosis and embolism; Z79.899 Other long term (current) drug therapy; Z79.4 Long term (current) use of insulin
CPT/HCPCS: 33225; 33233; 33234; 33249; 36415; 71045; 71046; 76770; 80053; 80069; 81001; 82550; 82947; 83735; 83880; 84484; 85025; 93005; 93010; 96372; 96374; 97116; 97162; 97166; 97530; 97535; 99152; 99153; 99285-25; A9270; C1769; C1882; C1887; C1895; C8929; G0378; J0690; J1580; J1644; J1650; J1940; J2250; J3010; J7030; J7040; Q9957; Q9967; U0004

== ENCOUNTER → 2021-04-14 | Outpatient (CLI) | payer OTHER, MEDICARE ==
[~2021-04-14] MED LIST changes: +ALLO300 PO; +ALOGLIPTIN6.25 M1 PO; +AMIT25 PO; +ATOR40TA PO; +Amiodarone HCl200 MG PO; +CARV3.125 PO; +GLUCOSE4 GM PO; +HUMALOG KW100 UNIT/1 SC; +LANTUS SOL100 UNIT/1 SC; +LUBRICATING TEA15 ML BOTHEYES; +TAMS.4ER PO; +TORSE20 PO; +VITAMIN B-1250 MCG PO
[2021-04-15 16:15] LABS: Creatinine Urine 39.3 mg/dL (27.00-270.00); Protein, Urine Quantitative 19.2 mg/dL (0.0-11.9)
[2021-04-15 16:18] LABS: Microalbumin, Urine Quant. 54.1 mg/L (0.000-20.000)
== END | disposition home or self-care (01) ==
LOC: LAB SHORT 21:00 → LAB 21:00
PROVIDERS: Internal Medicine Nephrology
DX: N18.30 Chronic kidney disease, stage 3 unspecified (principal); D63.1 Anemia in chronic kidney disease; N25.81 Secondary hyperparathyroidism of renal origin; E55.9 Vitamin D deficiency, unspecified; E78.00 Pure hypercholesterolemia, unspecified; R76.9 Abnormal immunological finding in serum, unspecified; R94.5 Abnormal results of liver function studies; R94.6 Abnormal results of thyroid function studies; D51.0 Vitamin B12 deficiency anemia due to intrinsic factor deficiency; D52.8 Other folate deficiency anemias; D50.9 Iron deficiency anemia, unspecified
CPT/HCPCS: 81050; 82043; 82570; 84156

== ENCOUNTER 2021-05-27 16:10 | Emergency (ER) | payer OTHER ==
[~2021-05-27] VITALS: Ht 182.9 cm; Wt 98.9 kg
[2021-05-27 18:14] LABS: BASOPHILS ABSOLUTE AUTO 0.06 K/mm3 (0.00-0.23); BASOPHILS PERCENT AUTO 1 % (0-2); EOSINOPHILS ABSOLUTE AUTO 0.07 K/mm3 (0.00-0.68); EOSINOPHILS PERCENT AUTO 1 % (0-6); Hematocrit 41.4 % (37.0-53.0); IMMATURE GRAN ABSOLUTE AUTO 0.02 K/mm3 (0.00-0.10); IMMATURE GRAN PERCENT AUTO 0 % (0-1); LYMPHOCYTES ABSOLUTE AUTO 0.95 K/mm3 (0.84-5.20); LYMPHOCYTES PERCENT AUTO 20 % (21-46); MONOCYTES ABSOLUTE AUTO 0.46 K/mm3 (0.16-1.47); MONOCYTES PERCENT AUTO 10 % (4-13); Mean Corpuscular HGB 32.5 pg (26.0-34.0); Mean Corpuscular HGB Conc 33.8 g/dL (31.5-36.5); Mean Corpuscular Volume 96 fL (80-100); Mean Platelet Volume 12.3 fL (9.1-12.4); NEUTROPHILS PERCENT AUTO 68 % (41-73); Platelet Count 108 K/mm3 (150-400); RDW Coefficient Variation 17.7 % (11.7-14.2); RDW Standard Deviation 62.2 fL (35.1-46.3); Red Blood Cell Count 4.31 M/mm3 (4.30-5.90); White Blood Cell Count 4.86 K/mm3 (4.00-11.30)
[2021-05-27 18:37] LABS: Albumin, Blood 3.2 g/dL (3.4-5.0); Albumin/Globulin Ratio 0.8 (0.8-1.8); Bilirubin, Total 1.7 mg/dL (0.1-1.0); Calcium, Blood 9.5 mg/dL (8.5-10.1); Creatinine, Blood 2.26 mg/dL (0.60-1.20); Globulin, Blood 3.8 g/dL (2.2-4.0); Potassium, Blood 4.6 mmol/L (3.5-5.5); Troponin I 0.032 ng/mL (0.000-0.040)
[2021-05-28] MEDS ORDERED: FURO20 PO (02:01)
== END 2021-05-28 02:33 | disposition home or self-care (01) ==
LOC: ER 16:10
PROVIDERS: Physician Assistant
DX: I13.0 Hypertensive heart and chronic kidney disease with heart failure and stage 1 through stage 4 chronic kidney disease, or unspecified chronic kidney disease (principal); E11.22 Type 2 diabetes mellitus with diabetic chronic kidney disease; I50.22 Chronic systolic (congestive) heart failure; N18.9 Chronic kidney disease, unspecified; N40.0 Benign prostatic hyperplasia without lower urinary tract symptoms; I25.10 Atherosclerotic heart disease of native coronary artery without angina pectoris; I48.91 Unspecified atrial fibrillation; I25.2 Old myocardial infarction; Z79.899 Other long term (current) drug therapy; Z79.4 Long term (current) use of insulin
CPT/HCPCS: 36415; 51798; 71046; 80053; 83880; 84484; 85025; 93005; 93010; 96374; 96376; 99285-25; J1940

== ENCOUNTER 2021-06-05 21:52 | Inpatient (IN) | payer OTHER ==
[~2021-06-05] VITALS: Ht 182.9 cm; Wt 91.2 kg
[~2021-06-05 21:52] MED LIST changes: +FURO20 PO; +HYDR1TAB94 PO
[2021-06-05 22:30] LABS: BASOPHILS ABSOLUTE AUTO 0.05 K/mm3 (0.00-0.23); BASOPHILS PERCENT AUTO 1 % (0-2); EOSINOPHILS PERCENT AUTO 4 % (0-6); Hematocrit 42.3 % (37.0-53.0); Hemoglobin 14.3 g/dL (13.5-17.5); IMMATURE GRAN ABSOLUTE AUTO 0.02 K/mm3 (0.00-0.10); IMMATURE GRAN PERCENT AUTO 0 % (0-1); LYMPHOCYTES ABSOLUTE AUTO 0.83 K/mm3 (0.84-5.20); LYMPHOCYTES PERCENT AUTO 16 % (21-46); MONOCYTES ABSOLUTE AUTO 0.44 K/mm3 (0.16-1.47); MONOCYTES PERCENT AUTO 8 % (4-13); Mean Corpuscular HGB 32.1 pg (26.0-34.0); Mean Corpuscular HGB Conc 33.8 g/dL (31.5-36.5); Mean Corpuscular Volume 95 fL (80-100); Mean Platelet Volume 12.4 fL (9.1-12.4); NEUTROPHILS ABSOLUTE AUTO 3.75 K/mm3 (1.96-9.15); NEUTROPHILS PERCENT AUTO 71 % (41-73); NRBC ABSOLUTE 0.03 K/mm3 (0.00-0.02); NRBC Auto 0.6 /100 WBC (0.0-0.2); Platelet Count 98 K/mm3 (150-400); RDW Coefficient Variation 17.6 % (11.7-14.2); RDW Standard Deviation 60.8 fL (35.1-46.3); Red Blood Cell Count 4.45 M/mm3 (4.30-5.90); White Blood Cell Count 5.29 K/mm3 (4.00-11.30)
[2021-06-05 22:41] LABS: Albumin, Blood 2.7 g/dL (3.4-5.0); Albumin/Globulin Ratio 0.7 (0.8-1.8); Bilirubin, Total 1.5 mg/dL (0.1-1.0); Bun/Creatinine Ratio 19.9 (12.0-20.0); Calcium, Blood 9.2 mg/dL (8.5-10.1); Creatinine, Blood 3.62 mg/dL (0.60-1.20); Globulin, Blood 3.7 g/dL (2.2-4.0); Potassium, Blood 5.2 mmol/L (3.5-5.5); Total Protein, Blood 6.4 g/dL (6.4-8.2)
[2021-06-05 23:19] LABS: Troponin I 0.027 ng/mL (0.000-0.040)
[2021-06-06 03:13] LABS: SARS-Cov-2 (COVID-19) PCR, MMC NEGATIVE (NEGATIVE)
--- NOTE | 2021-06-06 04:19 | NUR ---
PATIENT IS A NEW ADMIT FROM THE ED. THREE PERSON TRANSFER FROM [facility] TO BED. AXOX 4 AND ON ROOM AIR. DENIES CHEST PAIN, SOB, AND N/V. TELEMETRY PLACED AND PACED AT 65 PER TECH. ORIENTED TO ROOM AND CALL LIGHT SYSTEM. CELLULITIS TO BLE WITH REDNESS TO RIGHT LEG. REPORTS HX CELLULITIS BACK IN AUGUST. EDEMA TO BUE AND BLE. SCABS NOTED ON LEFT TOE TIPS. REPORTS HX OF QUADRUPLE CORONARY BIPASS SURGERY 2016. IV LASIX GIVEN IN ED. PATIENT UP TO BSC WITH TWO ASSIST. VSS/AFEBRILE. NO SEIZURE ACTIVITY OBSERVED. REPORTS SPOUSE LEFT FOR HOME FROM ED. REPORTS PERIODS OF FORGETFULNESS SINCE HOME EVENT. PATIENT DENIES WATCHING TV AND WANTS TO SLEEP BEING UP SINCE 06:00. CALL LIGHT IN REACH. TM.
[2021-06-06 08:09] LABS: BASOPHILS ABSOLUTE AUTO 0.03 K/mm3 (0.00-0.23); BASOPHILS PERCENT AUTO 1 % (0-2); EOSINOPHILS ABSOLUTE AUTO 0.09 K/mm3 (0.00-0.68); EOSINOPHILS PERCENT AUTO 2 % (0-6); Hematocrit 39.2 % (37.0-53.0); Hemoglobin 13.3 g/dL (13.5-17.5); IMMATURE GRAN ABSOLUTE AUTO 0.02 K/mm3 (0.00-0.10); IMMATURE GRAN PERCENT AUTO 0 % (0-1); LYMPHOCYTES ABSOLUTE AUTO 0.76 K/mm3 (0.84-5.20); LYMPHOCYTES PERCENT AUTO 15 % (21-46); MONOCYTES ABSOLUTE AUTO 0.43 K/mm3 (0.16-1.47); MONOCYTES PERCENT AUTO 9 % (4-13); Mean Corpuscular HGB 31.7 pg (26.0-34.0); Mean Corpuscular HGB Conc 33.9 g/dL (31.5-36.5); Mean Corpuscular Volume 93 fL (80-100); Mean Platelet Volume 11.5 fL (9.1-12.4); NEUTROPHILS PERCENT AUTO 73 % (41-73); NRBC ABSOLUTE 0.02 K/mm3 (0.00-0.02); NRBC Auto 0.4 /100 WBC (0.0-0.2); Platelet Count 98 K/mm3 (150-400); RDW Coefficient Variation 17.4 % (11.7-14.2); RDW Standard Deviation 59.7 fL (35.1-46.3); White Blood Cell Count 4.93 K/mm3 (4.00-11.30)
[2021-06-06 08:38] LABS: Albumin, Blood 2.7 g/dL (3.4-5.0); Anion Gap 11 mmol/L (6-16); Blood Urea Nitrogen 74 mg/dL (8-24); Bun/Creatinine Ratio 20.1 (12.0-20.0); CO2, Blood 24 mmol/L (21-32); Calcium, Blood 9.2 mg/dL (8.5-10.1); Chloride, Blood 100 mmol/L (98-108); Creatinine, Blood 3.68 mg/dL (0.60-1.20); Glomerular Filtration Rate 16 (60-); Glucose, Blood 164 mg/dL (70-99); Phosphorus, Blood 5.1 mg/dL (2.5-4.9); Potassium, Blood 4.4 mmol/L (3.5-5.5); Sodium, Blood 135 mmol/L (136-145)
--- NOTE | 2021-06-06 11:54 | NUR ---
Initial palliative care consult: Harshal is an 86 year old with a history of CHF with ER of 10-15% with ICD, CKD, DM type two, HTN, CO s/p CABG in 2017, CAD, a-fib, and HLD. He has been evaluated in the ER three times in the past two weeks prior to this admission. He is admitted with CHF exacerbation and R leg cellulitis. He has edema to L arm, bilat legs and abd area. He reports generalized fatigue, weakness, activity intolerance, SOB and fluid retention. He states that the doctors told him recently that his kidneys and heart are quite sick, he states he was unaware of how sick he was until recently. He reports that the keyliner, Dr. Crockett, told him that he may likely need dialysis. Reviewed CHF and CKD for pt. Explained disease processes and the recurrent cycle of admissions. Reviewed HD per his request. Answered questions. Harshal is very open to conversation about his goals of care and would like his to be present to have her hear the information that we spoke about this morning. Harshal's will plan to visit at 2 pm today and this web content writer will return to his room to continue discussions re: goals of care at that time per his request. Plan will be to continue discussions re: goals of care this afternoon.
[2021-06-06 14:32] LABS: Bun/Creatinine Ratio 19.6 (12.0-20.0); Calcium, Blood 9.6 mg/dL (8.5-10.1); Creatinine, Blood 3.83 mg/dL (0.60-1.20); Potassium, Blood 4.1 mmol/L (3.5-5.5)
--- NOTE | 2021-06-06 15:45 | NUR ---
Returned to Harshal's room to meet with Harshal, his Maya and their son, Fabian. They report that they are familiar with palliative care as their son, Blaze, in August of this year and the palliative care team worked with their family. Reviewed the diagnosis of CHF, worsening kidney function and answered questions of randall's and son re: the disease trajectory and different options for care. Harshal and his family are very open to conversation about planning for future care. Discussed options of continued treatments, possibly HD if MD offers that as a possibility and discussed the option of comfort care and hospice. Provided pamplets for dialysis, hospice and the booklet considering comfort care to Maya and Fabian. Harshal is very open to wanting input from his family in determining a plan of care going forward. Reviewed current code status with Harshal and his family. Harshal is clear that he would like to be a DNR and his family is in agreement with that. They asked many questions about hospice and what services would be available through the [facility] if they chose transitioning to comfort care. They would like a live in caregiver to contact the [facility] on Tuesday to determine what services Harshal may be eligible for and also to see if the hospice unit at the [facility] would be an option for Harshal if he chooses to transition to comfort care. Maya states that she feels that she would not be able to care for Harshal at home. Fabian is their remaining child and he lives in [place]. He states that even if he quit his job and moved here he is unsure if he would be able to assist with caring for Harshal. Harshal states that he would not want his son to quit his job. [facility] should be chose hosp[facility]. He is struggling with losing his independence and doesn't want to be a burden to his family. Will allow family time to visit with Harshal, absorb the information they have received today. Will plan to follow up with Harshal and his family tomorrow to answer any further questions. Fabian pulled this radio news writer aside in the hallway and expressed gratitude for the visit. Fabian states that he is aware that his dad is nearing end of life and states that when the time comes that they would like to use [facility] and have Harshal cremated. Spoke with Dr. Devine and placed order for DNR. Contact names and numbers reviewed in chart for Fabian and Maya.
--- NOTE | 2021-06-06 19:08 | NUR ---
PT AO WITH SOME BLANK STARE AT TIMES.PT HAS 3+ PITTING EDEMA AND CELLULITIS TO THE RIGHT LOWER EXTREMITIES,EDEMA ON LEFT UPPER EXTREMITIY.PT ON TELE PACEMAKER RATE AT 66.PT DENIES PAIN,N/V,AND SOB,PT ABD IS DISTENTED BOWEL SOUNDS ACTIVE IN ALL QUADRANT.PT IS 2X ASSIST TO BSC.PT LUNGS DIMINSHED,PT IN BED,BED IN LOW POSITON.PT STATUS CHANGED TO DNR THIS AFTERNOON. CALL LIGHT IN REACH WILL CONTINUE TO MONITOR.
--- NOTE | 2021-06-07 03:42 | NUR ---
SHIFT SUMMARY PATIENT HAD NO ACUTE CHANGES OBSERVED. AXOX 3-4 AND TWO ASSIST TO BSC. CBG 182. PIV REMAINS INTACT. TECH REPORTS PACED AT 63. CELLULITIS RIGHT LOWER EXTREMITY AND LEFT ARM EDEMA. DENIES PAIN, SOB, AND N/V. VSS/AFEBRILE. NO SEIZURE ACTIVITY OBSERVED. CALL LIGHT IN REACH. BED IN LOWEST POSITION. WILL CONTINUE TO MONITOR UNTIL DAY SHIFT NURSE ASSUMES CARE.
[2021-06-07 05:50] LABS: Albumin, Blood 2.6 g/dL (3.4-5.0); Anion Gap 9 mmol/L (6-16); Blood Urea Nitrogen 75 mg/dL (8-24); Bun/Creatinine Ratio 19.7 (12.0-20.0); CO2, Blood 27 mmol/L (21-32); Calcium, Blood 9.6 mg/dL (8.5-10.1); Chloride, Blood 99 mmol/L (98-108); Glomerular Filtration Rate 15 (60-); Glucose, Blood 144 mg/dL (70-99); Phosphorus, Blood 4.3 mg/dL (2.5-4.9); Potassium, Blood 3.9 mmol/L (3.5-5.5); Sodium, Blood 135 mmol/L (136-145)
--- NOTE | 2021-06-07 16:39 | NUR ---
Met with Harshal, Maya and Fabian again this afternoon. Answered questions and gave an update on pt condition. Harshal reports that his goal would be to be able to go back home. Maya and Fabian express concern that in Harshal's weakened condition that he would likely fall and end up back in the ER. Harshal states he is feeling better today and is hopeful that he will continue to improve. He is undecided about dialysis care if that would be needed in the future. He is agreeable to medical management and would like to try to go to rehab. If he is able to get stronger at rehab, family would be more comfortable taking him home if he is able to ambulate with a walker safely. If his condition declines, or he isn't able to gain strength in rehab Harshal and his family will look at other options for placement in a facility or possibly hospice. Fabian requests that CM RN contact [place] tomorrow to see what services, and caregiver assistance that Harshal may be eligible for. Dr. Perry and bedside nurse updated. LM for CM [facility] to contact [facility]. Family and pt agreeable with plan.
--- NOTE | 2021-06-07 18:19 | NUR ---
Alert and oriented x3 , Denies any pain, nausea , and headache. One person assit with ADls AND used bedside for voiding. Continue on antibiotic therapy for cellulitis . Bilateral LE edema noted , 1-2 pitting . Vital signs are stable. Denies any SOB. Insulin coverage was given , no adverse effect noted. Call light within reach. Continue to monitor.
--- NOTE | 2021-06-08 03:57 | NUR ---
SHIFT SUMMARY PATIENT HAD NO ACUTE CHANGES OBSERVED. AOX X3 AND ONE ASSIST TO BSC. CBG 234. PIV REMAINS INTACT. HOLISTIC SPECIALIST REPORTS PACED @ 63. IV ABX INFUSED. REPORTED VANEGAS X ONE AND TYLENOL 650 MG GIVEN PER EMAR. DENIES SOB AND N/V. VSS/AFEBRILE. CELLULITIS RIGHT LOWER EXTREMETY. LEFT ARM EDEMA. CALL LIGHT IN REACH. BED IN LOWEST POSITION. WILL CONTINUE TO MONITOR UNTIL DAY SHIFT NURSE ASSUMES CARE.
[2021-06-08 09:25] LABS: Albumin, Blood 2.5 g/dL (3.4-5.0); Anion Gap 10 mmol/L (6-16); Blood Urea Nitrogen 70 mg/dL (8-24); Bun/Creatinine Ratio 21.5 (12.0-20.0); CO2, Blood 29 mmol/L (21-32); Calcium, Blood 9.6 mg/dL (8.5-10.1); Chloride, Blood 100 mmol/L (98-108); Creatinine, Blood 3.26 mg/dL (0.60-1.20); Glomerular Filtration Rate 18 (60-); Glucose, Blood 161 mg/dL (70-99); Phosphorus, Blood 3.6 mg/dL (2.5-4.9); Potassium, Blood 3.1 mmol/L (3.5-5.5); Sodium, Blood 139 mmol/L (136-145)
[2021-06-08] MEDS ORDERED: CEPH500 PO (15:13)
[2021-06-08 15:26] LABS: SARS-Cov-2 (COVID-19) PCR, MMC NEGATIVE (NEGATIVE)
--- NOTE | 2021-06-08 17:12 | NUR ---
Alert and oriented x3 , able to make needs known. c/o pain , tylenol 650 mg was given for pain management , it was effective.Vital signs are stable. Potassim was 3.1 , potassium IV replacement was made . One person assist with ADLS. Ambulate to bathroom using a walker with SBA. Continue on tele monitor , pacing at 66. Continue on IV abo therapy for cellulitis, no adverse effects noted. [facility] and discharged instruction given to the nurse at facility .
== END 2021-06-08 16:15 | DRG 291 ==
LOC: ER 21:52 → MEDS 06-06 01:18 → ER 06-06 02:43 → MEDS 06-06 02:54
PROVIDERS: Emergency Medicine; Family Medicine; Hospitalist; Student in an Organized Health Care Education/Training Program; ADMIT Internal Medicine
DX: I13.0 Hypertensive heart and chronic kidney disease with heart failure and stage 1 through stage 4 chronic kidney disease, or unspecified chronic kidney disease (principal); I50.23 Acute on chronic systolic (congestive) heart failure; L03.115 Cellulitis of right lower limb; N17.9 Acute kidney failure, unspecified; N18.30 Chronic kidney disease, stage 3 unspecified; Z20.822 Contact with and (suspected) exposure to COVID-19; Z66 Do not resuscitate; E11.22 Type 2 diabetes mellitus with diabetic chronic kidney disease; I27.20 Pulmonary hypertension, unspecified; E78.5 Hyperlipidemia, unspecified; E86.9 Volume depletion, unspecified; I25.10 Atherosclerotic heart disease of native coronary artery without angina pectoris; I48.91 Unspecified atrial fibrillation; Z86.718 Personal history of other venous thrombosis and embolism; I25.2 Old myocardial infarction; Z95.0 Presence of cardiac pacemaker; Z95.1 Presence of aortocoronary bypass graft; Z79.01 Long term (current) use of anticoagulants; Z79.4 Long term (current) use of insulin; Z79.899 Other long term (current) drug therapy
CPT/HCPCS: 36415; 70450; 71045; 80048; 80053; 80069; 82947; 83735; 83880; 84484; 85025; 90686; 93005; 93010; 93308; 93321; 93971; 94762; 97116; 97162; 97166; 97530; 97535; 99285-25; A9270; J0690; J1815; J1940; J3480; J7120; U0004

== ENCOUNTER → 2021-07-09 | Outpatient (CLI) | payer OTHER ==
[2021-07-09 19:43] LABS: Albumin, Blood 2.9 g/dL (3.4-5.0); Anion Gap 6 mmol/L (6-16); Blood Urea Nitrogen 63 mg/dL (8-24); Bun/Creatinine Ratio 20.7 (12.0-20.0); CO2, Blood 28 mmol/L (21-32); Calcium, Blood 9.6 mg/dL (8.5-10.1); Chloride, Blood 101 mmol/L (98-108); Creatinine, Blood 3.04 mg/dL (0.60-1.20); Glomerular Filtration Rate 20 (60-); Glucose, Blood 222 mg/dL (70-99); Phosphorus, Blood 3.6 mg/dL (2.5-4.9); Potassium, Blood 4.7 mmol/L (3.5-5.5); Sodium, Blood 135 mmol/L (136-145)
== END | disposition home or self-care (01) ==
LOC: LAB HH 17:55
PROVIDERS: Internal Medicine Nephrology
DX: I13.0 Hypertensive heart and chronic kidney disease with heart failure and stage 1 through stage 4 chronic kidney disease, or unspecified chronic kidney disease (principal); E11.22 Type 2 diabetes mellitus with diabetic chronic kidney disease; N18.30 Chronic kidney disease, stage 3 unspecified; I50.23 Acute on chronic systolic (congestive) heart failure; D63.1 Anemia in chronic kidney disease; I25.10 Atherosclerotic heart disease of native coronary artery without angina pectoris; E78.5 Hyperlipidemia, unspecified
CPT/HCPCS: 80069; 85018

== ENCOUNTER 2021-07-12 11:10 | Emergency (ER) | payer OTHER ==
[~2021-07-12] VITALS: Ht 180.3 cm; Wt 104.3 kg
[2021-07-12 11:25] LABS: Calcium, Ionized (POC) 0.92 mmol/L (1.10-1.46); Chloride (POC) 103 mmol/L (98-108); Creatinine (POC) 3.1 mg/dL (0.8-1.3); Glucose (ISTAT POC) 278 mg/dL (70-99); Potassium (POC) 4.5 mmol/L (3.5-5.5); Sodium (POC) 133 mmol/L (135-148); Total CO2 (POC) 23 mmol/L (21-32)
== END 2021-07-12 13:55 ==
LOC: ER 11:10
PROVIDERS: Emergency Medicine
DX: I46.9 Cardiac arrest, cause unspecified (principal); I11.0 Hypertensive heart disease with heart failure; I50.22 Chronic systolic (congestive) heart failure; E11.9 Type 2 diabetes mellitus without complications; I25.10 Atherosclerotic heart disease of native coronary artery without angina pectoris; I48.91 Unspecified atrial fibrillation; I25.2 Old myocardial infarction; Z79.899 Other long term (current) drug therapy; Z79.4 Long term (current) use of insulin; Z79.01 Long term (current) use of anticoagulants
CPT/HCPCS: 36415; 80047; 85014; 92950; 99285-25